=== PATIENT | female | born 1940 | race Caucasian/White ===

== ENCOUNTER 2021-06-24 11:37 | Inpatient (IN) | payer OTHER ==
[2021-06-24 13:24] LABS: Basophils % 0.5 % (0-1.3); Hematocrit 35.2 % (36.0-45.0); Lymphocytes % 14.7 % (15.3-44.8); MPV 7.7 fL (7.6-11.3); RBC Red Blood Cell Count 3.94 M/uL (3.86-4.86)
--- NOTE | 2021-06-24 14:23 | RAD REPORT ---
EXAM DESCRIPTION: US - Extrem Venous W Compress Dalton - 06/24/2021 2:12 pm CLINICAL HISTORY: Pain;Swelling Bilateral leg edema and swelling. COMPARISON: <Comparisons> TECHNIQUE: Real-time sonographic interrogation of the left and right lower extremity deep venous sys tems was performed. FINDINGS: Normal compressibility, flow augmentation, phasic flow and spontaneous flow is identified in both the left and right lower extremity deep venous systems. IMPRESSION: No sonographic evidence of left or right lower extremity deep venous thrombosis.
--- NOTE | 2021-06-24 15:12 | ER ---
Nurse's Notes [facility] Name: Kerrie Harrington Age: 81 yrs Sex: Female : 1940 Arrival Date: 06/24/2021 Time: 11:40 Bed 23 Private MD: Diagnosis: Cellulitis of right lower limb;Cellulitis of left lower limb Presentation: 06/24 11:49 Chief complaint: Patient states: RLE redness, swelling, pain, warmth for 2 weeks. + ll1 drainage with dressing intact. LLE healed quickly from a little blister that popped up. No fever at home. Coronavirus screen: Vaccine status: Patient reports receiving the 2nd dose of the covid vaccine. Client denies travel out of the [place] in the last 14 days. At this time, the client does not indicate any symptoms associated with coronavirus-19. Ebola Screen: Patient denies travel to an Ebola-affected area in the 21 days before illness onset. Initial Sepsis Screen: Does the patient meet any 2 criteria? HR > 90 bpm. No. Patient's initial sepsis screen is negative. Does the patient have a suspected source of infection? Yes: Skin breakdown/wound. Risk Assessment: Do you want to hurt yourself or someone else? Patient reports no desire to harm self or others. Onset of symptoms was June 10, 2021. 11:49 Method Of Arrival: Wheelchair ll1 11:49 Acuity: KEVAN 3 ll1 Triage Assessment: 14:40 General: Appears uncomfortable, Behavior is calm, cooperative, appropriate for age. oh Historical: - Allergies: 11:47 PENICILLINS; ll1 11:47 Aspirin; ll1 - PMHx: 11:47 Hypertension; GERD; pre cancerous skin spots to head; ll1 - PSHx: 11:47 cataract repair; ll1 - Immunization history:: Client reports receiving the 2nd dose of the Covid vaccine. - Social history:: Smoking status: Patient denies any tobacco usage or history of. Screenin:51 Abuse screen: Denies threats or abuse. Nutritional screening: No deficits noted. ll1 Tuberculosis screening: No symptoms or risk factors identified. 14:40 Fall Risk Gait-. oh Assessment: 14:37 Derm: Rash noted that is draining clear fluid, cellulitis to bilal legs, much worse on oh the right leg. pt states she tried to go to her pcp but doesn't have an appointment till June.flaking red clear draingae and significant swelling to right leg. 14:39 Pain: Complains of pain in right leg. oh Vital Signs: 11:49 BP 132 / 68; Pulse 95; Resp 17; Temp 97.4; Pulse Ox 98% ; Weight 90.26 kg; Height 5 ft. ll1 4 in. (162.56 cm); Pain 10/10; 14:47 BP 143 / 77; Pulse 90; Resp 19; Pulse Ox 100% ; oh 11:49 Body Mass Index 34.16 (90.26 kg, 162.56 cm) ll1 ED Course: 11:40 Patient arrived in ED. rg4 11:49 Arm band placed on. ll1 11:51 Triage completed. ll1 11:51 Patient has correct armband on for positive identification. Bed in low position. Call ll1 light in reach. Side rails up X 1. 12:00 Meek Soto NP is PHCP. pm1 12:00 Reid Krueger MD is Attending Physician. pm1 12:18 Ventura Talley, JULIENNE is Primary Nurse. oh 13:00 Inserted saline lock: 22 gauge in left wrist, using aseptic technique. Blood collected. oh 13:04 Blood Culture Adult (2) Sent. oh 13:05 CMP Sent. oh 13:05 Lactate Sent. oh 13:05 Procalcitonin Sent. oh 13:05 CBC with Diff Sent. oh 14:12 Extrem Venous W Compression Dalton US In Process Unspecified. EDMS 15:11 Edis Summers is Hospitalizing Provider. pm1 19:40 No provider procedures requiring assistance completed. Patient admitted, IV remains in df1 place. Administered Medications: 16:53 Drug: vancoMYCIN 1 grams Route: IVPB; Infused Over: 2 hrs; Site: left hand; oh Outcome: 15:12 Decision to Hospitalize by Provider. pm1 19:40 Admitted to Med/surg accompanied by tech. df1 19:40 Condition: stable 19:40 Instructed on the need for admit. 19:41 Patient left the ED. df1 Signatures: Dispatcher [employer] EDOH Meek Soto NP UNEMPLOYMENT INSPECTOR pm1 Falguni Thayer rg4 Ryan Vazquez RN RN 1 Lila Cardona df1 Mayank, Oneka, RN RN oh Corrections: (The following items were deleted from the chart) 13:42 13:04 CORONAVIRUS+[email or web address] drawn and sent. oh EDMS
--- NOTE | 2021-06-24 15:12 | EDPHYS ---
Physician Documentation [facility] Name: Kerrie Harrington Age: 81 yrs Sex: Female : 1940 Arrival Date: 06/24/2021 Time: 11:40 Bed 23 Private MD: ED Physician Reid Krueger HPI: 06/24 12:31 This 81 yrs old Female presents to ER via Wheelchair with complaints of Leg pm1 Swelling, Feet Swelling. 12:31 The patient presents with cellulitis of the right leg and left leg, the patient pm1 presents with a swollen area of the right leg. Description: erythematous, Blistering. Flaking and cracking of skin. Swelling of right lower extremity for the past 3 days. Onset: The symptoms/episode began/occurred 2 week(s) ago, and became worse 3 day(s) ago. Possible cause(s): unknown. Associated signs and symptoms: Pertinent positives: drainage, Blistering, Pertinent negatives: fever. Modifying factors: the symptoms are alleviated by nothing, the symptoms are aggravated by nothing. Severity of symptoms: in the emergency department the symptoms are actually worse. The patient has not recently seen a physician. Historical: - Allergies: 11:47 PENICILLINS; ll1 11:47 Aspirin; ll1 - PMHx: 11:47 Hypertension; GERD; pre cancerous skin spots to head; ll1 - PSHx: 11:47 cataract repair; ll1 - Immunization history:: Client reports receiving the 2nd dose of the Covid vaccine. - Social history:: Smoking status: Patient denies any tobacco usage or history of. ROS: 12:31 Constitutional: Negative for fever, chills, and weight loss, Cardiovascular: Negative pm1 for chest pain, palpitations, and edema, Respiratory: Negative for shortness of breath, cough, wheezing, and pleuritic chest pain, MS/Extremity: Negative for injury and deformity. 12:31 Skin: Positive for cellulitis, swelling, of the right leg and left leg. 12:31 All other systems are negative. Exam: 12:31 Constitutional: This is a well developed, well nourished patient who is awake, alert, pm1 and in no acute distress. Head/Face: Normocephalic, atraumatic. 12:31 Cardiovascular: Exam negative for acute changes, Rate: normal, Rhythm: regular, Pulses: no pulse deficits are appreciated. 12:31 Respiratory: Exam negative for acute changes, respiratory distress, shortness of breath. 12:31 Skin: Appearance: normal except for affected area, cellulitis, on the right padilla, anterior aspect of right ankle, dorsum of right foot, left padilla and anterior aspect of left ankle. 12:31 Neuro: Exam negative for acute changes, Orientation: is normal, Mentation: is normal, Motor: moves all fours. Vital Signs: 11:49 BP 132 / 68; Pulse 95; Resp 17; Temp 97.4; Pulse Ox 98% ; Weight 90.26 kg; Height 5 ft. ll1 4 in. (162.56 cm); Pain 10/10; 14:47 BP 143 / 77; Pulse 90; Resp 19; Pulse Ox 100% ; oh 11:49 Body Mass Index 34.16 (90.26 kg, 162.56 cm) ll1 MDM: 12:21 Patient medically screened. pm1 15:10 Data reviewed: vital signs. Data interpreted: Pulse oximetry: on room air is 100 %. pm1 Interpretation: normal. 15:10 Counseling: I had a detailed discussion with the patient and/or guardian regarding: the pm1 historical points, exam findings, and any diagnostic results supporting the discharge/admit diagnosis, lab results, the need for further work-up and treatment in the hospital. 15:10 Physician consultation: Chico Severino Sr was called at 15:05, was contacted at 15:05, pm1 regarding admission, patient's condition, and will see patient in ED. 06/24 12:29 Order name: Blood Culture Adult (2) pm1 06/24 12:29 Order name: CBC with Diff; Complete Time: 13:38 pm1 06/24 12:29 Order name: Procalcitonin; Complete Time: 16:37 pm1 06/24 12:29 Order name: Lactate; Complete Time: 14:55 pm1 06/24 12:29 Order name: CMP; Complete Time: 16:03 pm1 06/24 12:29 Order name: IV Saline Lock; Complete Time: 13:04 pm1 06/24 12:29 Order name: Extrem Venous W Compression Dalton US; Complete Time: 14:55 pm1 06/24 13:42 Order name: SARS-COV-2 RT PCR; Complete Time: 14:55 EDMS Administered Medications: 16:53 Drug: vancoMYCIN 1 grams Route: IVPB; Infused Over: 2 hrs; Site: left hand; oh Disposition: 06/25 07:03 Co-signature as Attending Physician, Reid Krueger MD I agree with the assessment and rn plan of care. Attestation: The patient's history, exam findings, diagnostics, and a summary of any interventions or procedures was reviewed in detail with Meek Soto IMPROVEMENT AUDITOR. Disposition Summary: 06/24/21 15:12 Hospitalization Ordered Hospitalization Status: Inpatient Admission pm1 Provider: Edis Summers pm1 Location: Telemetry/MedSurg (Inpatient) pm1 Condition: Stable pm1 Problem: new pm1 Symptoms: have improved pm1 Bed/Room Type: Standard 1 Room Assignment: 221(06/24/21 18:27) dw Diagnosis - Cellulitis of right lower limb pm1 - Cellulitis of left lower limb pm1 Forms: - Medication Reconciliation Form pm1 - SBAR form pm1 Signatures: Dispatcher [employer] EDNM Michelle Harrington, RN RN Reid Krueger MD MD rn Marinas, Patrick, NP IMPROVEMENT AUDITOR pm1 Ryan Vazquez RN RN 1 Ventura Talley RN RN oh Corrections: (The following items were deleted from the chart) 06/24 13:42 12:30 [email or web address] ordered. [facility] EDNM 18:27 15:12 pm1 dw
[2021-06-24] MEDS ORDERED: VANCOMYCIN 1 GM/VIAL ONE (15:33)
[2021-06-24 15:36] LABS: Albumin 3.7 g/dL (3.4-5.0); Bilirubin Total 0.5 mg/dL (0.2-1.0); Potassium 3.8 mmol/L (3.5-5.1); Protein, Total 8.2 g/dL (6.4-8.2)
[2021-06-24] MEDS ORDERED: VANCOMYCIN/NS 1 gm 1 GM/250 ML BAG IVPB ONE (16:00)
[2021-06-24] MEDS ORDERED: VANCOMYCIN 1.25 GM in NA CHLORIDE 0.9% 250 ML IVPB SCH (17:36)
[2021-06-24] MEDS ORDERED: ACETAMINOPHEN 500 MG TAB PO PRN (17:36)
[2021-06-24] MEDS ORDERED: ONDANSETRON 4 MG/2 ML VIAL IV PRN (17:36)
[2021-06-24] MEDS: NA CHLORIDE 0.9% 1,000 ML IV SCH (17:36)
[2021-06-24 18:13] VITALS: BMI 34.1
--- NOTE | 2021-06-24 18:31 | P.HP ---
Certification for Inpatient Patient admitted to: Inpatient With expected LOS: >2 Midnights Patient will require the following post-hospital care: Home Health Services (???) Practitioner: I am a practitioner with admitting privileges, knowledge of patient current condition, hospital course, and medical plan of care. Services: Services provided to patient in accordance with Admission requirements found in Title 42 Section 412.3 of the Code of Federal Regulations <Chico Severino - Last Filed: 06/24/21 18:26> Patient History Date of Service: 06/24/21 Primary Care Provider: Dr Houser Reason for admission: Cellulitis History of Present Illness: Kody Harrington - Extrem Venous W Compress Dalton - 06/24/2021 2:12 pm CLINICAL HISTORY: Pain;Swelling Bilateral leg edema and swelling. COMPARISON: <Comparisons> FINDINGS: Normal compressibility, flow augmentation, phasic flow and spontaneous flow is identified in both the left and right lower extremity deep venous systems. IMPRESSION: No sonographic evidence of left or right lower extremity deep venous thrombosis. Patient labs are unremarkable. Patient is slightly anemic with a hemoglobin of 11.9 and a hematocrit of 35.2. Procalcitonin is less than 0.05. Patient is a pleasant elderly white female of 81 years. She developed cell ulitis of her left and right legs approximately 2 to 3 weeks ago. About 10 days ago she developed blisters on her lower right leg. The redness and swelling was uncomfortable however she did not want to bother her primary care provider who did not have an available appointment at that time. On arrival to the ER she has fairly mild cellulitis of the left lower leg primarily around the ankle. She has much more extensive cellulitis of her lower right leg with blistering at the ankle and in mid-calf. She is in no acute distress at this time. Home medications list reviewed: Yes - Past Medical/Surgical History Has patient received pneumonia vaccine in the past: Yes Diabetic: No -: HTN -: High cholesterol -: Breast Cancer -: GERD -: Lumpectomy 2009 -: Total hip replacement 2008 -: Hysterectomy Psychosocial/ Personal History: Retired, lives at home alone - Family History Father -: Hypertension, Cancer Brother -: Hypertension, Cancer Sister -: Diabetes, Cancer - Social History Smoking Status: Never smoker Alcohol use: No CD- Drugs: No Caffeine use: Yes Place of Residence: Home <Chico Severino - Last Filed: 06/24/21 18:26> Date of Service: 06/24/21 <Rolando Georges - Last Filed: 06/26/21 03:40> Allergies aspirin Allergy (Verified 03/16/15 06:57) STOMACH IRRITATION Penicillins Allergy (Verified 03/16/15 06:57) Hives Home Medications: Lisinopril/Hydrochlorothiazide [Zestoretic 10-12.5 mg Tablet] 2 tab PO DAILY 03/12/13 Famotidine 40 mg PO BID 06/25/21 Lovastatin 10 mg PO BEDTIME 06/25/21 lisinopriL [Lisinopril] 10 mg PO BEDTIME 06/25/21 Review of Systems Unremarkable General: Other (Allergies to environment) Eyes: Unremarkable ENT: Unremarkable Respiratory: SOB with Excertion Cardiovascular: Unremarkable Gastrointestinal: Unremarkable Musculoskeletal: Unremarkable Integumentary: As per HPI Neurological: Unremarkable Lymphatics: Unremarkable <Chico Severino - Last Filed: 06/24/21 18:26> Physical Examination - Physical Exam General: Alert, In no apparent distress, Oriented x3 HEENT: Atraumatic, Normocephalic Neck: Supple, 2+ carotid pulse no bruit, JVD not distended Respiratory: Clear to auscultation bilaterally, Normal air movement Cardiovascular: No edema, Normal pulses, Regular rate/rhythm Capillary refill: <2 Seconds Gastrointestinal: Normal bowel sounds, Soft and benign, Non-distended Musculoskeletal: No clubbing, No swelling, No contractures Integumentary: Skin breakdown, Erythema, Other (blistering) Neurological: Normal speech, Normal strength at 5/5 x4 extr, Normal tone External genitalia: Deferred Rectal: Deferred - Studies Laboratory Data (last 24 hrs) 06/24/21 13:53: Sodium 142, Potassium 3.8, BUN 17, Creatinine 0.93, Glucose 112 H, Total Bilirubin 0.5, AST 18, ALT 19, Alkaline Phosphatase 95 06/24/21 12:53: WBC 6.90, Hgb 11.9 L, Hct 35.2 L, Plt Count 356 <Chico Severino - Last Filed: 06/24/21 18:26> - Studies Microbiology Data (last 24 hrs): 06/24/21 13:10 Blood - Blood Blood Culture Gram Stain - Final <Rolando Georges - Last Filed: 06/26/21 03:40> Assessment and Plan - Plan Assessment: Cellulitis Hypertension GERD Plan: Cellulitis: Monitor for worsening swelling or redness. IV antibiotics. Hypertension: Continue home medications GERD: Continue home medications DVT PPx: Lovenox 40 mg subcu CODE STATUS: Full code Discharge Plan: Home - Advance Directives Does patient have a Living Will: Yes Does patient have a Durable POA for Healthcare: Yes - Code Status/Comfort Care Code Status Assessed: Yes Code Status: Full Code Critical Care: No Time Spent Managing Pts Care (In Minutes): 70 <Chico Severino - Last Filed: 06/24/21 18:26> - Problems (Diagnosis) (1) Cellulitis of right lower extremity Current Visit: Yes Status: Acute (2) H/O malignant neoplasm of breast Current Visit: Yes Status: Acute (3) HTN (hypertension) Current Visit: Yes Status: Acute (4) Hyperlipidemia Current Visit: No Status: Active <Rolando Georges - Last Filed: 06/26/21 03:40> Date of Service: 06/24/21 Subjective Agree with the HPI as mentioned above Review of Systems 10-point ROS is otherwise unremarkable Physical Examination - Vital Signs Reviewed - Physical Exam General: Alert, In no apparent distress, Oriented x3 Respiratory: Clear to auscultation bilaterally, Normal air movement Cardiovascular: Regular rate/rhythm, Normal S1 S2, No murmurs Gastrointestinal: Normal bowel sounds, Soft and benign, Non-distended, No tenderness Musculoskeletal: No clubbing, No swelling, No tenderness Integumentary: Tenderness/swelling, Erythema, Warmth Neurological: Sensation intact, Cranial nerves 3-12 intact Assessment & Plan - Problems (Diagnosis) (1) Cellulitis of right lower extremity Current Visit: Yes Status: Acute (2) H/O malignant neoplasm of breast Current Visit: Yes Status: Acute (3) HTN (hypertension) Current Visit: Yes Status: Acute (4) Hyperlipidemia Current Visit: No Status: Active - Plan Continue with plan of care as mentioned below: 1. Continue with IV antibiotic 2. Continue with local wound care 3. Wound care consultation and Infectious Disease consultation 4. Hep-Lock IV 5. Monitor CBC 6. Strict blood sugar monitoring 7. Pain control 8. GI and DVT prophylaxis <Rolando Georges - Last Filed: 06/26/21 03:40>
[2021-06-24] MEDS ORDERED: NA CHLORIDE 0.9% 1,000 ML ONE (19:23)
[2021-06-24 19:48] VITALS: O2SAT 100
[2021-06-24] MEDS ORDERED: VANCOMYCIN 500 MG in NA CHLORIDE 0.9% 100 ML IVPB ONE (20:15)
[2021-06-24 22:00] LABS: Urine Appearance CLEAR (Clear); Urine Bilirubin NEGATIVE (Negative); Urine Blood NEGATIVE (Negative); Urine Color YELLOW (Yellow); Urine Glucose NEGATIVE (Negative); Urine Microscopic Reflex ORDER UMIC; Urine Protein NEGATIVE (Negative); Urine Specific Gravity 1.015 (1.005-1.030); Urine Urobilinogen 0.2 mg/dL (0.2-1.0); Urine pH 6.5 (5.0-7.0)
[2021-06-24 22:10] LABS: Urine Bacteria 20-50 /HPF (<20); Urine RBC NONE SEEN /HPF (NONE SEEN); Urine Urothelial Cells <5 /HPF (NONE SEEN)
[2021-06-25] MEDS: NA CHLORIDE 0.9% 1,000 ML IV SCH ×3 (03:36→23:36)
[2021-06-25 06:08] LABS: Absolute Lymphocytes (CBC) 1.1 K/uL (0.7-4.9); Basophils % 0.3 % (0-1.3); Hematocrit 32.7 % (36.0-45.0); Lymphocytes % 18.2 % (15.3-44.8); MPV 7.3 fL (7.6-11.3); RBC Red Blood Cell Count 3.65 M/uL (3.86-4.86)
[2021-06-25 06:24] LABS: Albumin 2.9 g/dL (3.4-5.0); Bilirubin Total 0.4 mg/dL (0.2-1.0); Potassium 3.9 mmol/L (3.5-5.1); Protein, Total 6.8 g/dL (6.4-8.2)
[2021-06-25] MEDS: ENOXAPARIN 40 MG/0.4 ML SQ SCH (09:00)
[2021-06-25] MEDS ORDERED: CEFEPIME 1 GM/VIAL IV SCH (09:00)
[2021-06-25] MEDS: CEFEPIME 1 GM in NA CHLORIDE 0.9% 100 ML IV SCH (11:00)
[2021-06-25] MEDS ORDERED: INFLUENZA VACCINE (for 6+ mo) 0.5 ML DOSE IMVAC ONE (17:00)
[2021-06-25] MEDS ORDERED: VANCOMYCIN 1.75 GM in NA CHLORIDE 0.9% 500 ML IVPB SCH (18:00)
[2021-06-25] MEDS ORDERED: lisinopriL 10 MG TAB PO SCH (21:00)
[2021-06-25] MEDS: FAMOTIDINE 20 MG TAB PO SCH (21:00)
[2021-06-25] MEDS ORDERED: ATORVASTATIN 10 MG TAB PO SCH (21:00)
--- NOTE | 2021-06-26 03:36 | P.PN ---
Subjective Date of Service: 06/25/21 Patient is clinically doing much better. Erythema is improving. Will Consult wound healing & Infectious Diseases as well. Review of Systems 10-point ROS is otherwise unremarkable Physical Examination - Vital Signs Temperature: 98.1 F Blood Pressure: 162/72 Pulse: 87 Respirations: 18 Pulse Ox (%): 94 - Physical Exam General: Alert, In no apparent distress, Oriented x3 Respiratory: Clear to auscultation bilaterally, Normal air movement Cardiovascular: Regular rate/rhythm, Normal S1 S2, No murmurs Gastrointestinal: Normal bowel sounds, Soft and benign, Non-distended, No tenderness Musculoskeletal: No clubbing, No swelling, No tenderness Integumentary: Tenderness/swelling, Erythema, Warmth Neurological: Sensation intact, Cranial nerves 3-12 intact - Studies Microbiology Data (last 24 hrs): 06/24/21 13:10 Blood - Blood Blood Culture Gram Stain - Final Medications List Reviewed: Yes Assessment & Plan - Problems (Diagnosis) (1) Cellulitis of right lower extremity Current Visit: Yes Status: Acute (2) H/O malignant neoplasm of breast Current Visit: Yes Status: Acute (3) HTN (hypertension) Current Visit: Yes Status: Acute (4) Hyperlipidemia Current Visit: No Status: Active - Plan 1. Continue with IV antibiotic 2. Continue with local wound care 3. Wound care consultation and Infectious Disease consultation 4. Hep-Lock IV 5. Monitor CBC 6. Strict blood sugar monitoring 7. Pain control 8. GI and DVT prophylaxis Discharge Plan: Home Plan to discharge in: Greater than 2 days - Advance Directives Does patient have a Living Will: Yes Does patient have a Durable POA for Healthcare: Yes - Code Status/Comfort Care Code Status: Full Code Critical Care: No Time Spent Managing PTS Care (In Minutes): 35
[2021-06-26 06:04] LABS: Absolute Lymphocytes (CBC) 1.3 K/uL (0.7-4.9); Basophils % 0.5 % (0-1.3); Hematocrit 29.9 % (36.0-45.0); Lymphocytes % 24.2 % (15.3-44.8); MPV 7.1 fL (7.6-11.3); RBC Red Blood Cell Count 3.31 M/uL (3.86-4.86)
[2021-06-26 06:20] LABS: Albumin 2.6 g/dL (3.4-5.0); Bilirubin Total 0.4 mg/dL (0.2-1.0); Potassium 3.6 mmol/L (3.5-5.1); Protein, Total 6.3 g/dL (6.4-8.2)
[2021-06-26] MEDS: hydroCHLOROthiazide 25 MG TAB PO SCH ×2 (08:22→08:23)
[2021-06-26] MEDS: ENOXAPARIN 40 MG/0.4 ML SQ SCH (08:23)
[2021-06-26] MEDS: FAMOTIDINE 20 MG TAB PO SCH (08:24)
[2021-06-26] MEDS ORDERED: lisinopriL 20 MG TAB PO SCH (09:00)
[2021-06-26] MEDS: CEFEPIME 1 GM in NA CHLORIDE 0.9% 100 ML IV SCH (13:12)
--- NOTE | 2021-06-26 13:24 | P.DS ---
Admission Date: 06/24/21 Discharge Date: 06/26/21 Primary Care Provider: Dr. Collazo Disposition: ROUTINE DISCHARGE Discharge Condition: GOOD Reason for Admission: Cellulitis Consultations: Wound Care Procedures: COVID: Negative Venous doppler: COMPARISON: <Comparisons> TECHNIQUE: Real-time sonographic interrogation of the left and right lower extremity deep venous systems was performed. FINDINGS: Normal compressibility, flow augmentation, phasic flow and spontaneous flow is identified in both the left and right lower extremity deep venous systems. IMPRESSION: No sonographic evidence of left or right lower extremity deep venous thrombosis. Medical problem List: Bilateral lower extremity cellulitis Hypertension GERD Hyperlipidemia Brief History of Present Illness: 81-year-old female presented with cellulitis of the legs bilateral. She had some erythema for several weeks to the lower extremity. About 10 days ago she developed blisters to the right lower extremity. She was not able to get with her PCP to further evaluate. In the ER she was evaluated. Patient found to have cellulitis to the lower extremities. Patient admitted for treatment. Hospital Course: Patient presented with bilateral lower extremity cellulitis. Patient was admitted for treatment. Patient had blister demarcation noted. Patient improved with IV antibiotic therapy. No debridement was required. Her condition has significantly improved. Patient was seen by wound care. Wound care recommended to apply A&E ointment daily to the skin for hydration. Recommend to continue Medihoney and place conforming gauze to her legs daily. Recommend follow-up at the wound care clinic in 1 week to monitor her progress and treatment. Patient will continue with Levaquin 500 mg daily for the next 5 days. Recommend follow-up with her PCP to further monitor and address. Patient with hypertension. At discharge patient will continue with her current medication including lisinopril hydrochlorothiazide 10/12.5 mg 2 pills daily and lisinopril 10 mg at bedtime. Recommend to maintain blood pressure less than 130/80. If blood pressure remains above 150/90, she may need to contact her PCP for further recommendation. Patient with hyperlipidemia. At discharge she will continue with lovastatin 10 mg daily. Patient with GERD. At discharge we will continue with Pepcid 40 mg daily. Patient had candidiasis rash to the breast and groin region. Patient may continue with nystatin powder twice daily to the irritated regions until resolution. Vital Signs/Physical Exam: Temp Pulse Resp BP Pulse Ox 99.5 F 81 16 173/75 H 98 06/26/21 11:45 06/26/21 11:45 06/26/21 11:45 06/26/21 11:45 06/26/21 11:45 General: Alert, In no apparent distress, Oriented x3, Cooperative HEENT: Atraumatic Neck: Supple Respiratory: Clear to auscultation bilaterally Cardiovascular: Normal pulses Gastrointestinal: Normal bowel sounds Musculoskeletal: Other (No significant erythema, swelling.) Integumentary: Other (Dry skin changes noted to the lower extremity. Line of demarcation from prior blister noted.) Neurological: Normal speech, Normal strength at 5/5 x4 extr, Normal tone Laboratory Data at Discharge: WBC 5.20 K/uL (4.3-10.9) D 06/26/21 05:36 Hgb 10.1 g/dL (12.0-15.0) L 06/26/21 05:36 Hct 29.9 % (36.0-45.0) L 06/26/21 05:36 Plt Count 269 K/uL (152-406) 06/26/21 05:36 Sodium 144 mmol/L (136-145) 06/26/21 05:36 Potassium 3.6 mmol/L (3.5-5.1) 06/26/21 05:36 BUN 14 mg/dL (7-18) 06/26/21 05:36 Creatinine 0.68 mg/dL (0.55-1.3) 06/26/21 05:36 Glucose 113 mg/dL (74-106) H 06/26/21 05:36 Total Bilirubin 0.4 mg/dL (0.2-1.0) 06/26/21 05:36 AST 16 U/L (15-37) 06/26/21 05:36 ALT 17 U/L (12-78) 06/26/21 05:36 Alkaline Phosphatase 73 U/L (45-117) 06/26/21 05:36 Home Medications: Lisinopril/Hydrochlorothiazide [Zestoretic 10-12.5 mg Tablet] 2 tab PO DAILY 03/12/13 Famotidine 40 mg PO BID 06/25/21 Lovastatin 10 mg PO BEDTIME 06/25/21 lisinopriL [Lisinopril] 10 mg PO BEDTIME 06/25/21 Medihoney [Medihoney Woundcare Gel*] 1 appl TOP DAILY #1 tube 06/26/21 Nystatin Powder [Mycostatin (Powder)*] 1 appl TOP BID #1 btl 06/26/21 New Medications: Medihoney [Medihoney Woundcare Gel*] 1 appl TOP DAILY #1 tube Nystatin Powder [Mycostatin (Powder)*] 1 appl TOP BID #1 btl Physician Discharge Instructions: Patient presented with bilateral lower extremity cellulitis. Patient was admitted for treatment. Patient had blister demarcation noted. Patient improved with IV antibiotic therapy. No debridement was required. Her conditio n has significantly improved. Patient was seen by wound care. Wound care recommended to apply A&E ointment daily to the skin for hydration. Recommend to continue Medihoney and place conforming gauze to her legs daily. Recommend follow-up at the wound care clinic in 1 week to monitor her progress and treatment. Patient will continue with Levaquin 500 mg daily for the next 5 days. Recommend follow-up with her PCP to further monitor and address. Patient with hypertension. At discharge patient will continue with her current medication including lisinopril hydrochlorothiazide 10/12.5 mg 2 pills daily and lisinopril 10 mg at bedtime. Recommend to maintain blood pressure less than 130/80. If blood pressure remains above 150/90, she may need to contact her PCP for further recommendation. Patient with hyperlipidemia. At discharge she will continue with lovastatin 10 mg daily. Patient with GERD. At discharge we will continue with Pepcid 40 mg daily. Patient had candidiasis rash to the breast and groin region. Patient may continue with nystatin powder twice daily to the irritated regions until resolution. Diet: AHA Activity: Ad anastasia Followup: Jocelyn Collazo DO [Primary Care Provider] - Time spent managing pt's care (in minutes): 55
[2021-06-26] MEDS ORDERED: MEDIHONEY 44 ML TOPICAL TUBE TOP SCH (13:45)
[2021-06-26] MEDS ORDERED: NYSTATIN PWDR 100000 UNIT/GM TOP SCH (14:00)
[2021-06-26 16:11] VITALS: BP 175/72; TEMP 98.1
--- NOTE | 2021-06-26 19:45 | CON ---
History Of Present Illness: The patient is an 81-year-old female coming in with right lower extremit y cellulitis and stasis dermatitis of both lower extremities. Patient also has an open cut wound to the right leg, which happened after a dressing was removed and her blister opened up. The patient de nies any fall or trauma to the wound site. Denies any headache, nausea, vomiting, chest pain, abdomi nal pain, constipation, or diarrhea. Past Medical History: Hypertension, hypercholesterolemia, breast cancer, GERD, lumpectomy, total hip replacement in 2009, hysterectomy. Social History: Nonsmoker, nondrinker. Family History: Noncontributory. Medications: Cefepime and vancomycin. Allergies: PENICILLIN AND ASPIRIN. PENICILLIN CAUSES RASH. Review of Systems: Ten-point review was performed. Physical Examination: General: This is an 81-year-old female, lying in bed, not in any acute cardiopulmonary distress. Vital Signs: Temperature 97, pulse 88, respirations 18, blood pressure 160/71. HEENT: Unremarkable. Neck: Supple. Lungs: Basal crackles. Heart: S1, S2. Regular. Abdomen: Soft, nontender. Bowel sounds present. Extremity: Erythematous changes with hyperkeratosis noted on both legs. Right leg with large vertic al laceration. Laboratory Data: Shows WBC 6.9, hemoglobin 11.9, platelets are 356. Chemistry shows sodium 142, pot assium 3.8, chloride 106, bicarb 29, BUN 17, creatinine 0.9, glucose is 112. Albumin is 3.7, up from 2.6. Micro data; blood cultures are negative. Urine is mixed edwardo. Assessment And Plan: Right lower extremity cellulitis in an 81-year-old female and stasis dermatitis of both lower extremities. Patient also has protein-calorie malnourishment and mild hyperglycemia. Cultures being negative. Patient is improved significantly and will be discharged today. Recommend to continue antibiotic for 10 more days. Continue current treatment. Keep legs elevated when possi ble. No other recommendation at this time. We will follow the patient as needed. Thank you, Dr. Georges and Dr. Blakely for consult. NF/MODL Voice ID: [id number] Report ID: [id number]
== END 2021-06-26 16:36 | disposition home or self-care (01) | DRG 603 ==
LOC: ER 11:37 → ERHOLD 16:45 → 2ND 19:37
PROVIDERS: ADMIT Hospitalist; ATTEND Hospitalist
DX: L03.116 Cellulitis of left lower limb (principal); E46 Unspecified protein-calorie malnutrition; L03.115 Cellulitis of right lower limb; I10 Essential (primary) hypertension; K21.9 Gastro-esophageal reflux disease without esophagitis; E78.5 Hyperlipidemia, unspecified; B37.2 Candidiasis of skin and nail; I87.2 Venous insufficiency (chronic) (peripheral); Z68.34 Body mass index [BMI] 34.0-34.9, adult; Z85.3 Personal history of malignant neoplasm of breast; Z96.649 Presence of unspecified artificial hip joint; Z88.0 Allergy status to penicillin; Z20.822 Contact with and (suspected) exposure to COVID-19
CPT/HCPCS: 36415; 80053; 81003; 81015; 83605; 84145; 85025; 87040; 87086; 87088; 87205; 93970; 96374; 99251; 99285; J0692; J1650; J3370; J7030; J7040; J7050; U0003

== ENCOUNTER 2022-03-24 17:56 | Emergency (ER) | payer OTHER ==
[2022-03-24 19:55] LABS: Absolute Lymphocytes (CBC) 1.5 K/uL (0.7-4.9); Hematocrit 37.8 % (36.0-45.0); Lymphocytes % 17.8 % (15.3-44.8); MCV 90.5 fL (80-100); MPV 7.5 fL (7.6-11.3); RBC Red Blood Cell Count 4.18 M/uL (3.86-4.86)
[2022-03-24 20:12] LABS: Albumin 3.6 g/dL (3.4-5.0); Bilirubin Direct 0.2 mg/dL (0-0.2); Bilirubin Total 0.6 mg/dL (0.2-1.0); Protein, Total 7.5 g/dL (6.4-8.2)
[2022-03-24 20:18] LABS: Protime INR 0.98
[2022-03-24] MEDS ORDERED: TETANUS & DIPHTHERIA TOX,ADULT 0.5 ML VIAL ONE (21:07)
--- NOTE | 2022-03-24 21:15 | RAD REPORT ---
EXAM DESCRIPTION: CT - Head C Spine Cap Amilcar Dia - 03/24/2022 8:45 pm CLINICAL HISTORY: Head and neck injury with chest and abdominal pain status post fall. Head and neck pain . TECHNIQUE: Computed axial tomography of the head and cervical spine was obtained Computed axial tomography of the chest, abdomen and pelvis was obtained. 100 cc Isovue-300 was given intravenously coronal and sagittal reconstruction was performed. All CT scans are performed using dose optimization technique as appropriate and may include automated exposure control or mA/KV adjustment according to patient size. COMPARISON: CT ABD 2011 FINDINGS: An intracranial bleed is not seen. The ventricles are normal in caliber. An extra-axial fl uid collection is not noted. Fluid within the sinuses is not seen A cervical fracture is not seen. No dislocation is seen. A mediastinal hematoma is not noted. A pleural effusion is not present. A lung contusion is not seen. Nondisplaced fracture left seventh lateral rib. Minimally displaced fracture eighth left lateral rib The liver, spleen, pancreas, adrenals, kidneys and bladder do not demonstrate a traumatic injury Small bilateral nonobstructing renal calculi. Right hip prosthesis. Marked osteoarthritis left hip The proximal and mid esophagus are mildly dilated Small thyroid nodules IMPRESSION: No acute intracranial abnormality is seen A cervical fracture is not visualized. If the patient continues have symptoms to suggest intracranial /spinal cord pathology then MRI would be recommended. Nondisplaced fracture left seventh rib. Minimally displaced fracture left eighth rib. No pneumothorax No acute traumatic injury involving the abdomen/pelvis Proximal and mid esophagus are mildly dilated. Followup is recommended
--- NOTE | 2022-03-24 21:28 | ER ---
Nurse's Notes [facility] Name: Krerie Harrington Age: 81 yrs Sex: Female : 1940 Arrival Date: 03/24/2022 Time: 18:02 Bed 3 Private MD: Diagnosis: Fall (on) (from) other stairs and steps-porch;Laceration without foreign body of left forearm-superfical;Multiple fractures of ribs, left side- \\T\\ Presentation: 03/24 18:00 Chief complaint: Patient states: "82 year old female with a fall today from a standing jd3 position. she reports that she was swatting at a mosquito and lost her balance. no blood thinners and no LOC. she is reporting left elbow pain with an abrasion and left lower back pain.". Coronavirus screen: At this time, the client does not indicate any symptoms associated with coronavirus-19. Ebola Screen: No symptoms or risks identified at this time. Initial Sepsis Screen: Does the patient meet any 2 criteria? No. Patient's initial sepsis screen is negative. Does the patient have a suspected source of infection? No. Patient's initial sepsis screen is negative. Risk Assessment: Do you want to hurt yourself or someone else? Patient reports no desire to harm self or others. Onset of symptoms was March 24, 2022. 18:00 Method Of Arrival: EMS: [facility] jd3 18:00 Acuity: KEVAN 3 jd3 Historical: - Allergies: 18:34 Aspirin; jd3 18:34 PENICILLINS; jd3 - PMHx: 18:34 GERD; Hypertension; pre cancerous skin spots to head; jd3 - PSHx: 18:34 cataract repair; jd3 - Immunization history:: Adult Immunizations up to date. - Social history:: Smoking status: Patient/guardian denies using tobacco, but has a distant history of tobacco abuse. - Family history:: not pertinent. - Hospitalizations: : No recent hospitalization is reported. Screenin:38 Abuse screen: Denies threats or abuse. Nutritional screening: No deficits noted. jd3 Tuberculosis screening: No symptoms or risk factors identified. Fall Risk Ambulatory Aid- None/Bed Rest/Nurse Assist (0 pts). Gait- Normal/Bed Rest/Wheelchair (0 pts) Mental Status- Oriented to own ability (0 pts). Total [place] Fall Scale indicates No Risk (0-24 pts). Assessment: 18:34 General: Appears in no apparent distress. comfortable, Behavior is calm, cooperative, jd3 appropriate for age. Pain: Complains of pain in low back area, left low back and left elbow Quality of pain is described as aching. Neuro: Ramirez Agitation-Sedation Scale (RASS): 0 - Alert and Calm Level of Consciousness is awake, alert, obeys commands, Oriented to person, place, time, situation. Cardiovascular: Capillary refill < 3 seconds Patient's skin is warm and dry. Respiratory: Airway is patent Respiratory effort is even, unlabored, Respiratory pattern is regular, symmetrical, Denies cough, shortness of breath. GI: No signs and/or symptoms were reported involving the gastrointestinal system. : No signs and/or symptoms were reported regarding the genitourinary system. EENT: No signs and/or symptoms were reported regarding the EENT system. Derm: Skin is intact, Skin is dry, Skin is normal, Skin temperature is warm abrasion noted to left elbow. Musculoskeletal: Circulation, motion, and sensation intact. Range of motion: intact in all extremities. 19:35 Reassessment: Patient appears in no apparent distress at this time. as6 20:56 Reassessment: Patient appears in no apparent distress at this time. Patient is alert, aa9 oriented x 3, equal unlabored respirations, skin warm/dry/pink. Vital Signs: 18:34 BP 150 / 59; Pulse 93; Resp 18 S; Temp 98.5(TE); Pulse Ox 100% on R/A; Weight 89.81 kg jd3 (R); Height 5 ft. 4 in. (162.56 cm) (R); Pain 7/10; 19:35 Pulse 86; Resp 18; Pulse Ox 98% on R/A; as6 20:56 BP 162 / 81; Pulse 100; Resp 18 S; Pulse Ox 98% on R/A; aa9 21:51 BP 158 / 67; Pulse 99; Resp 20; Pulse Ox 97% on R/A; Pain 7/10; kl 18:34 Body Mass Index 33.99 (89.81 kg, 162.56 cm) jd3 ED Course: 18:02 Patient arrived in ED. em1 18:02 Reid Krueger MD is Attending Physician. rn 18:05 Eduardo Mendez RN is Primary Nurse. jd3 18:33 Triage completed. jd3 18:34 Arm band placed on. jd3 18:38 Patient has correct armband on for positive identification. Bed in low position. Call jd3 light in reach. Side rails up X2. Adult w/ patient. Pulse ox on. NIBP on. 18:58 Inserted saline lock: 22 gauge in left antecubital area, using aseptic technique. jd3 19:07 Attending Physician role handed off by Reid Krueger MD [facility] 19:07 Charlie Day MD is Attending Physician. justice 20:47 Head C Spine Cap W Con In Process Unspecified. EDMS 21:44 Assist provider with laceration repair Set up tray. Performed by Charlie Day MD. IV kl discontinued, intact, bleeding controlled, No redness/swelling at site. Pressure dressing applied. 21:44 Wound care: to skin tear located on left elbow was cleaned with dressed with Neosporin, kl 4X4s, Kerlix. 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 Exp: kl 02/03/2023. Lot #: [id number]. } Route: IM; Site: right deltoid; 21:46 Follow up: Response: (VIS) Vaccine information sheet provided today. Questions and/or kl concerns addressed. VIS edition date: Apr 21, 2021.; No adverse reaction 21:30 Drug: Neosporin (bfmjenei-idbzearldp-nahjrybzu) Ointment 1 application Route: Topical; Site: affected area; 21:43 Drug: [place] (HYDROcodone-acetaminophen) (7.5 mg-325 mg) 1 tabs Route: PO; kl 21:46 Follow up: Response: No adverse reaction kl 21:43 Drug: Ondansetron 4 mg Route: PO; kl 21:45 Follow up: Response: No adverse reaction Medication: 18:38 VIS not applicable for this client. jd3 Outcome: 21:28 Discharge ordered by . justice 21:45 Discharged to home via wheelchair. kl 21:52 Condition: stable kl 21:52 Discharge instructions given to patient, family, Instructed on discharge instructions, follow up and referral plans. medication usage, Incentive spirometer Demonstrated understanding of instructions, follow-up care, medications, incentive spirometer 21:53 Patient left the ED. kl Signatures: Dispatcher [employer] EDMS Doreen Vazquez RN Charlie Quintero MD MD cha Nieto, Roman, MD MD rn Martinez, Eric emEduardo Llanos RN RN jd3 Cem Maguire RN RN as6 Niki Felix RN RN aa9
--- NOTE | 2022-03-24 21:29 | EDPHYS ---
Physician Documentation [facility] Name: Kerrie Harrington Age: 81 yrs Sex: Female : 1940 Arrival Date: 03/24/2022 Time: 18:02 Bed 3 Private MD: ED Physician Charlie Day HPI: 03/24 18:19 This 81 yrs old Female presents to ER via Unassigned with complaints of fall. rn 18:19 Details of fall: The patient fell from an upright position, while walking. Onset: The rn symptoms/episode began/occurred just prior to arrival. Associated injuries: The patient sustained injury to the head, injury to the low back, injury to the chest. Severity of symptoms: At their worst the symptoms were moderate, in the emergency department the symptoms are unchanged. The patient has not experienced similar symptoms in the past. The patient has not recently seen a physician. Pt reports fall, lost balance, fell backward, having pain to head/flanks/ribs/back. NO blood thinners. Remembers all events. No LOC.. Historical: - Allergies: 18:34 Aspirin; jd3 18:34 PENICILLINS; jd3 - PMHx: 18:34 GERD; Hypertension; pre cancerous skin spots to head; jd3 - PSHx: 18:34 cataract repair; jd3 - Immunization history:: Adult Immunizations up to date. - Social history:: Smoking status: Patient/guardian denies using tobacco, but has a distant history of tobacco abuse. - Family history:: not pertinent. - Hospitalizations: : No recent hospitalization is reported. ROS: 18:19 Constitutional: Negative for fever, chills, and weight loss, Eyes: Negative for injury, rn pain, redness, and discharge, Neck: Negative for injury, pain, and swelling, Cardiovascular: + chest/rib pain Respiratory: Negative for shortness of breath, cough, wheezing, and pleuritic chest pain, Abdomen/GI: Negative for abdominal pain, nausea, vomiting, diarrhea, and constipation, Back: + bilateral flank pain : Negative for injury, bleeding, discharge, and swelling, MS/Extremity: + skin tear to left elbow, + abrasion to left ankle Skin: + skin tear and abrasion Neuro: Negative for weakness, numbness, tingling, and seizure. Exam: 18:19 Constitutional: This is a well developed, well nourished patient who is awake, alert, rn and in no acute distress. Head/Face: Normocephalic, small contusion/hematoma occiput Eyes: Pupils equal round and reactive to light, extra-ocular motions intact. Lids and lashes normal. Conjunctiva and sclera are non-icteric and not injected. Cornea within normal limits. Periorbital areas with no swelling, redness, or edema. Neck: Trachea midline, no vertebral point tenderness. Chest/axilla: Normal chest wall appearance and motion. + tender bilateral lateral ribs without crepitus Cardiovascular: Regular rate and rhythm. No pulse deficits. Respiratory: No increased work of breathing, no retractions or nasal flaring. Abdomen/GI: Soft, non-tender Back: No spinal tenderness. No costovertebral tenderness. Full range of motion. Skin: Warm, dry. Moderate skin tear left elbow. + abrasion to left lateral malleolus. MS/ Extremity: Pulses equal, no cyanosis. Neurovascular intact. Full, normal range of motion. Equal circumference. Neuro: Awake and alert, GCS 15 Vital Signs: 18:34 BP 150 / 59; Pulse 93; Resp 18 S; Temp 98.5(TE); Pulse Ox 100% on R/A; Weight 89.81 kg jd3 (R); Height 5 ft. 4 in. (162.56 cm) (R); Pain 7/10; 19:35 Pulse 86; Resp 18; Pulse Ox 98% on R/A; as6 20:56 BP 162 / 81; Pulse 100; Resp 18 S; Pulse Ox 98% on R/A; aa9 21:51 BP 158 / 67; Pulse 99; Resp 20; Pulse Ox 97% on R/A; Pain 7/10; kl 18:34 Body Mass Index 33.99 (89.81 kg, 162.56 cm) jd3 MDM: 18:02 Patient medically screened. rn 19:06 Transition of care: After a detail discussion of the patient's case, care is rn transferred to Charlie Day MD. 21:28 Differential diagnosis: abrasion, closed head injury, contusion, fracture, laceration, justice multiple trauma, sprain, strain. Data reviewed: vital signs, nurses notes, lab test result(s), radiologic studies, CT scan. Data interpreted: manager monitoring: rate is 100 beats/min, rhythm is regular, Pulse oximetry: on room air is 98 %. Test interpretation: by ED physician or midlevel provider:. Counseling: I had a detailed discussion with the patient and/or guardian regarding: the historical points, exam findings, and any diagnostic results supporting the discharge/admit diagnosis, lab results, radiology results, the need for outpatient follow up, for definitive care, a family practitioner, a general surgeon. 03/24 18:18 Order name: CBC with Diff; Complete Time: 20:25 rn 03/24 18:18 Order name: Basic Metabolic Panel; Complete Time: 20:25 rn 03/24 18:18 Order name: Protime (+inr); Complete Time: 20:25 rn 03/24 18:18 Order name: Ptt, Activated; Complete Time: 20:25 rn 03/24 18:18 Order name: LFT's; Complete Time: 20:25 rn 03/24 18:18 Order name: IV Start; Complete Time: 19:19 rn 03/24 20:33 Order name: Head C Spine Cap W Con EDMS 03/24 21:27 Order name: INCENTIVE SPIROMETRY justice 03/24 21:08 Order name: Wound dressing; Complete Time: 21:20 justice Administered Medications: 21:09 Drug: Tetanus-Diphtheria Toxoid Adult 0.5 ml {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 Exp: kl 02/03/2023. Lot #: [id number]. } Route: IM; Site: right deltoid; 21:46 Follow up: Response: (VIS) Vaccine information sheet provided today. Questions and/or concerns addressed. VIS edition date: Apr 21, 2021.; No adverse reaction 21:30 Drug: Neosporin (zgdmzfes-infbdenblo-drfsesvgp) Ointment 1 application Route: Topical; kl Site: affected area; 21:43 Drug: [place] (HYDROcodone-acetaminophen) (7.5 mg-325 mg) 1 tabs Route: PO; kl 21:46 Follow up: Response: No adverse reaction kl 21:43 Drug: Ondansetron 4 mg Route: PO; kl 21:45 Follow up: Response: No adverse reaction kl Disposition Summary: 03/24/22 21:28 Discharge Ordered Location: Home justice Problem: new justice Symptoms: have improved justice Condition: Stable justice Diagnosis - Fall (on) (from) other stairs and steps - porch justice - Laceration without foreign body of left forearm - superfical justice - Multiple fractures of ribs, left side - \T\ justice Followup: justice - With: Private Physician - When: 2 - 3 days - Reason: Recheck today's complaints, Continuance of care, Re-evaluation by your physician Discharge Instructions: - Discharge Summary Sheet justice - Acute Back Pain, Adult justice - Fall Prevention in the Home, Adult justice - Skin Tear justice - Rib Fracture justice - How to Use an Incentive Spirometer justice - Skin Tear, Nnia-rl-Zskn justice - Rib Fracture, Ncxr-ew-Mliq justice Forms: - Medication Reconciliation Form justice - Thank You Letter justice - Antibiotic Education justice - Prescription Opioid Use [facility] Prescriptions: - Tylenol-Codeine #3 300 mg-30 mg Oral - take 1 tablet by ORAL route every 6 hours; 20 tablet; Refills: 0, Product justice Selection Permitted Signatures: Dispatcher [employer] EDMS Doreen Vazquez RN RN kl Anderson, Corey, MD MD cha Nieto, Roman, MD MD rn Davies, Jonathon, RN RN jd3 Corrections: (The following items were deleted from the chart) 20:31 18:24 Chest Abdomen Pelvis W Con+CT.RAD.BRZ ordered. EDMS EDMS 20:33 18:22 Head Brain Wo Cont+CT.RAD.BRZ ordered. EDMS EDMS
[2022-03-24] MEDS ORDERED: HYDROCODONE/APAP 7.5/325 MG TAB ONE (21:46)
[2022-03-24] MEDS ORDERED: ONDANSETRON 4 MG (ODT) TAB ONE (21:46)
[2022-03-24 22:22] VITALS: TEMP 98.5
[2022-03-24 22:27] VITALS: BP 158/67; O2SAT 97
== END 2022-03-24 21:53 | disposition home or self-care (01) ==
LOC: ER 17:56
DX: S22.42XA Multiple fractures of ribs, left side, initial encounter for closed fracture (principal); S51.812A Laceration without foreign body of left forearm, initial encounter; W10.8XXA Fall (on) (from) other stairs and steps, initial encounter; Z23 Encounter for immunization; I10 Essential (primary) hypertension; Z88.0 Allergy status to penicillin; Z88.6 Allergy status to analgesic agent
CPT/HCPCS: 85025; 80048; 36415; 85610; 80076; 85730; 70450; 72125; 71260; 74177; 90714; Q9967; Q0162; 90471; 99284

== ENCOUNTER 2022-04-06 16:15 | Inpatient (IN) | payer OTHER ==
--- OUTSIDE RECORDS SUMMARY | 2022-04-06 16:32 | XMS REPORT | Continuity of Care Document ---
:1940 Author Organization [facility] t Address [address] [place] [address] Care Team Providers Name Role Phone Jocelyn Collazo Attending Clinician Unavailable Problems This patient has no known problems. Allergies, Adverse Reactions, Alerts Allergy Allergy Status Severity Reaction(s) Onset Inactive Treating Comm ents Source Name Type Date Date Clinician Aspirin Adverse Active Info Not Common Reaction Available [facility] Amoxicil Adverse Active Info Not Commo n kerrie Reaction Available [facility] Medications Ordered Filled Start Stop Current Ordering Indication Dosage Frequency Signature Comments Components Source Medication Medication Date Date Medication? Clinician (SIG) Name Name Lisinopril Lisinopril 2020-0 Yes Na Collazo 1 tablet Common 2-12 [facility] 00:00: - [facility] 00 [facility] Triamcinolo Triamcinolo 2020-0 Yes Na Collazo 1 Common ne ne 2-12 applicatio Spirit Acetonide Acetonide 00:00: n to - C HI 00 affected [facility] Albuterol Albuterol 2020-0 Yes Na Collazo 3 ml as Common Sulfate Sulfate 2-12 needed [facility] 00:00: - [facility] 00 [facility] Nystatin Nystatin 2020-0 2020- No Na Collazo 1 C ommon 2-12 04-12 applicatio Spirit 00:00: 00:00 n to - [facility] 00 :00 affected [facility] Famotidine Famotidine 2020-0 Yes Na Collazo 1 tablet Common 1-02 as needed Spirit 00:00: - [facility] Zantac Zantac Yes Na Collazo TAKE 1 Common TABLET BY Spirit MOUTH - [facility] TWICE A [facility] Multivitami Multivitami Yes Na Collazo not Common n n defined [facility] Lovastatin Lovastatin Yes Na Collazo TAKE 1 Common TABLET BY Spirit MOUTH - [facility] EVERY DAY [facility] Lisinopril- Lisinopril- Yes Na Collazo TAKE 2 Common Hydrochloro Hydrochloro TABLETS BY Spirit thiazide thiazide MOUTH - [facility] EVERY DAY [facility] Lisinopril- Lisinopril- Yes Na Collazo 2 tablet Common Hydrochloro Hydrochloro S pirit thiazide thiazide - [facility] Hydrochloro Hydrochloro Yes Na Collazo 1 tablet Common thiazide thiazide in the Spiri t morning - [facility] Immunizations Ordered Immunization Filled Immunization Date Status Commen ts Source Name Name Kodak Candelario 2019-06-24 Completed Common [facility] 00:00:00 - [facility] TDAP > 7 TDAP > 7 2018-05-21 Completed Common [facility] Years-Adacel Years-Adacel 00:00:00 - [facility] Prevnar 13 Prevnar 13 2018-05-21 Completed Common [facility] -Pneumonia Vaccine -Pneumonia Vaccine 00:00:00 - [facility] Procedures This patient has no known procedures. Encounters Start End Encounter Admission Attending Care Care Encounter Source Date/Time Date/Time Type Type Clinicians Facility Department ID 2022-03-28 Outpatient Jocelyn Collazo STLMLC STLMLC [id number] 2 Common 09:38:00 [facility] 2022-03-26 Outpatient Jocelyn Collazo STLMLC STLMLC [id number] 2 Common 11:16:00 [facility] 2022-03-05 Outpatient Zay, Na STLMLC STLMLC [id number] 2 Common 08:48:00 [facility] 2022-02-27 Outpatient Jocelyn Collazo STLMLC STLMLC [id number] 2 Common 09:40:01 [facility] 2021-12-19 Outpatient Jocelyn Collazo STLMLC STLMLC [id number] 2 Common 09:58:01 [facility] 2021-12-18 Outpatient Collazo, Na STLMLC STLMLC [id number] 2 Common 11:06:01 [facility] 2021-12-15 Outpatient Collazo, Na STLMLC STLMLC [id number] 2 Common 13:37:00 [facility] 2021-10-11 Outpatient Collazo, Na STLMLC STLMLC [id number] 2 Common 12:48:42 [id number] [facility] 2021-10-11 Outpatient Collazo, Na STLMLC STLMLC [id number] 2 Common 12:47:40 [id number] [facility] 2021-10-11 Outpatient Collazo, Na STLMLC STLMLC [id number] 2 Common 11:48:55 [id number] [facility] 2021-10-11 Outpatient Collazo, Na STLMLC STLMLC [id number] 2 Common 11:17:22 [id number] [facility] 2021-10-11 Outpatient Collazo, Na STLMLC STLMLC [id number] 2 Common 11:13:20 [id number] [facility] 2021-10-11 Outpatient Collazo, Na STLMLC STLMLC [id number] 2 Common 11:07:19 [id number] [facility] 2021-10-11 Outpatient Collazo, Na STLMLC STLMLC [id number] 2 Common 11:06:28 [id number] [facility] 2022-03-26 2022-03-26 ambulatory STLMLC STLMLC [id number] Common 00:00:00 00:00:00 [facility] 2022-03-13 2022-03-13 ambulatory STLMLC STLMLC [id number] Common 00:00:00 00:00:00 [facility] 2022-02-27 2022-02-27 ambulatory STLMLC STLMLC [id number] Common 00:00:00 00:00:00 [facility] 2022-02-23 2022-02-23 ambulatory STLMLC STLMLC [id number] Common 00:00:00 00:00:00 [facility] 2021-12-19 2021-12-19 ambulatory STLMLC STLMLC [id number] Common 00:00:00 00:00:00 [facility] 2021-09-12 2021-09-12 ambulatory STLMLC STLMLC [id number] Common 00:00:00 00:00:00 [facility] 2021-08-14 2021-08-14 ambulatory STLMLC STLMLC [id number] Common 00:00:00 00:00:00 [facility] 2021-07-20 2021-07-20 ambulatory STLMLC STLMLC [id number] Common 00:00:00 00:00:00 [facility] 2021-07-13 2021-07-13 Outpatient STLMLC STLMLC [id number] Common 00:00:00 00:00:00 [facility] 2021-07-04 2021-07-04 Outpatient STLMLC STLMLC [id number] Common 00:00:00 00:00:00 [facility] 2020-12-20 2020-12-20 Outpatient STLMLC STLMLC [id number] Common 00:00:00 00:00:00 [facility] 2020-12-19 2020-12-19 Outpatient STLMLC STLMLC [id number] Common 00:00:00 00:00:00 [facility] 2020-09-26 2020-09-26 Outpatient STLMLC STLMLC [id number] Common 00:00:00 00:00:00 [facility] 2020-06-13 2020-06-13 Outpatient STLMLC STLMLC [id number] Common 00:00:00 00:00:00 [facility] 2020-03-10 2020-03-10 [id number] Common 15:20:00 15:20:00 [facility] [employer] [address] [facility] 2019-11-26 2019-11-26 [facility] [id number] Common 13:40:00 13:40:00 [facility] [employer] [address] [facility] 2019-10-30 2019-10-30 [id number] Common 11:11:00 11:11:00 [place] [address] [facility] 2019-10-28 2019-10-28 [facility] [id number] Common 11:00:00 11:00:00 [place] [address] [facility] 2019-09-17 2019-09-17 [facility] [id number] Common 13:52:00 13:52:00 [place] [address] [facility] 2019-06-24 2019-06-24 [facility] [id number] Common 11:20:00 11:20:00 [place] [address] [facility] 2019-02-19 2019-02-19 [facility] [id number] Common 13:00:00 13:00:00 [place] [address] [facility] 2018-11-18 2018-11-18 [facility] [id number] Common 14:15:00 14:15:00 [place] [address] [facility] 2018-10-10 2018-10-10 [facility] [id number] Common 11:33:00 11:33:00 [place] [address] [facility] 2018-08-20 2018-08-20 [facility] [id number] Common 14:00:00 14:00:00 [place] [address] [facility] 2018-05-21 2018-05-21 [facility] [id number] Common 14:15:00 14:15:00 [place] [address] [facility] 2018-02-18 2018-02-18 [facility] [id number] Common 15:00:00 15:00:00 [place] [address] [facility] Results This patient has no known results.
[2022-04-06 17:53] LABS: Absolute Lymphocytes (CBC) 0.8 K/uL (0.7-4.9); Hematocrit 31.3 % (36.0-45.0); Lymphocytes % 9.3 % (15.3-44.8); MCV 90.3 fL (80-100); RBC Red Blood Cell Count 3.46 M/uL (3.86-4.86)
--- NOTE | 2022-04-06 17:56 | ER ---
Nurse's Notes [facility] Name: Kerrie Harrington Age: 82 yrs Sex: Female : 1940 Arrival Date: 04/06/2022 Time: 16:18 Bed 6 Private MD: Diagnosis: Cellulitis of left lower limb;Cellulitis of right lower limb;Lymphedema, not elsewhere classified Presentation: 04/06 16:28 Chief complaint: Patient states: RAFAT lower leg swelling/weeping. Coronavirus screen: At ld1 this time, the client does not indicate any symptoms associated with coronavirus-19. Ebola Screen: No symptoms or risks identified at this time. Initial Sepsis Screen: Does the patient meet any 2 criteria? No. Patient's initial sepsis screen is negative. Does the patient have a suspected source of infection? No. Patient's initial sepsis screen is negative. Risk Assessment: Do you want to hurt yourself or someone else? Patient reports no desire to harm self or others. Onset of symptoms was April 06, 2022 at 16:29. 16:28 Method Of Arrival: Wheelchair ld1 16:28 Acuity: KEVAN 3 ld1 Triage Assessment: 16:28 General: Appears in no apparent distress. comfortable, Behavior is calm, cooperative, ld1 appropriate for age. Pain: Denies pain. EENT: No signs and/or symptoms were reported regarding the EENT system. Neuro: Level of Consciousness is awake, alert, obeys commands, Oriented to person, place, time, situation. Cardiovascular: Capillary refill < 3 seconds Patient's skin is warm and dry. Cardiovascular:. Cardiovascular:. Cardiovascular:. Respiratory: Airway is patent Respiratory effort is even, unlabored. Respiratory:. Respiratory: GI: Abdomen is round non-distended. GI: : No signs and/or symptoms were reported regarding the genitourinary system. :. Derm: No signs and/or symptoms reported regarding the dermatologic system. Derm:. Derm: No signs and/or symptoms reported regarding the dermatologic system. swelling to lower legs. Historical: - Allergies: 16:28 Aspirin; ld1 16:28 PENICILLINS; ld1 - PMHx: 16:28 GERD; Hypertension; pre cancerous skin spots to head; ld1 - PSHx: 16:28 cataract repair; ld1 - Immunization history:: Adult Immunizations up to date, Client reports receiving the 2nd dose of the Covid vaccine. - Social history:: Smoking status: Patient denies any tobacco usage or history of. Patient/guardian denies using alcohol. - Family history:: not pertinent. - Hospitalizations: : No recent hospitalization is reported. Screenin:43 Abuse screen: Denies threats or abuse. Denies injuries from another. Nutritional ph screening: No deficits noted. Tuberculosis screening: No symptoms or risk factors identified. Fall Risk None identified. Assessment: 17:43 General: Appears in no apparent distress. comfortable, well groomed, Behavior is calm, ph cooperative, appropriate for age, Denies fever, feeling ill. Pain: Complains of pain in buttocks. Neuro: Level of Consciousness is awake, alert, obeys commands, Oriented to person, place, time, situation. Cardiovascular: Denies chest pain, shortness of breath, Capillary refill < 3 seconds in bilateral fingers Patient's skin is warm and dry. Edema is 3+ to left midcalf, left ankle, left foot, right midcalf, right ankle and right foot. Respiratory: Airway is patent Respiratory effort is even, unlabored. GI: No signs and/or symptoms were reported involving the gastrointestinal system. Derm: Skin is fragile, is thin, Skin is pink, warm \T\ dry. Wound noted left lower leg and right lower leg Wound is red and weeping, warm to touch. Musculoskeletal: Circulation, motion, and sensation intact. Range of motion: intact in all extremities. 17:45 Reassessment: US at bedside. ph 18:22 Reassessment: Patient appears in no apparent distress at this time. No changes from tw2 previously documented assessment. Patient and/or family updated on plan of care and expected duration. Pain level reassessed. Patient is alert, oriented x 3, equal unlabored respirations, skin warm/dry/pink. 19:10 Reassessment: Patient aware of waiting for room assignment. General: Appears in no lp1 apparent distress. Neuro: Level of Consciousness is awake, alert, obeys commands. Respiratory: Respiratory effort is even. Derm: Wound noted Other: bilateral lower legs noted to be red, edematous, weeping drainage noted. 20:00 Reassessment: Patient appears in no apparent distress at this time. Patient aware of lp1 waiting for room assignment; family at bedside. 21:15 Reassessment: Dressed patient's bilateral lower legs with 4x4's, and kerlix; small lp1 amount of weeping noted bilaterally. Vital Signs: 16:28 BP 123 / 65; Pulse 109; Resp 18; Temp 98.5(O); Pulse Ox 100% on R/A; Weight 90.26 kg; ld1 Height 5 ft. 4 in. (162.56 cm); Pain 0/10; 17:45 BP 138 / 52; Pulse 105; Resp 18; Pulse Ox 98% on R/A; ph 18:22 BP 150 / 72; Pulse 112; Resp 19; Pulse Ox 98% ; tw2 19:15 BP 148 / 65; Pulse 108; Resp 15; Pulse Ox 98% on R/A; lp1 20:00 BP 158 / 80; Pulse 114; Resp 22; Pulse Ox 98% on R/A; lp1 21:00 BP 142 / 54; Pulse 110; Resp 20; Pulse Ox 98% on R/A; lp1 21:52 Temp 98.3(O); lp1 22:07 BP 127 / 52; Pulse 115; Resp 22; Pulse Ox 99% on R/A; lp1 16:28 Body Mass Index 34.16 (90.26 kg, 162.56 cm) ld1 ED Course: 16:18 Patient arrived in ED. mr 16:28 Arm band placed on right wrist. EKG completed in triage. Results shown to MD. ld1 16:29 Triage completed. ld1 16:40 Reid Krueger MD is Attending Physician. rn 16:42 Nettie Negrete RN is Primary Nurse. ph 17:35 Initial lab(s) drawn, by me, sent to lab. Inserted saline lock: 22 gauge in left ph antecubital area, using aseptic technique. Blood collected. 17:43 Patient has correct armband on for positive identification. Placed in gown. Bed in low ph position. Call light in reach. Side rails up X2. Client placed on continuous cardiac and pulse oximetry monitoring. NIBP monitoring applied. Door closed. Noise minimized. Warm blanket given. Pillow given. 17:55 Erick Kumar MD is Hospitalizing Provider. rn 18:15 Extrem Venous W Compression Rafat US In Process Unspecified. EDMS 19:09 Primary Nurse role handed off by Nettie Negrete, RN as6 19:09 Cem Maguire, RN is Primary Nurse. as6 20:14 Notified Nurse Practitioner and/or Physician Welding Robot Operator of a critical lab result(s), bb troponin of 76.0 [place] Severino RN QUALITY notified. 21:47 No provider procedures requiring assistance completed. Patient admitted, IV remains in lp1 place. Administered Medications: 18:59 Drug: vancoMYCIN 1 grams Route: IVPB; Infused Over: 2 hrs; Site: left antecubital; ph 21:30 Follow up: IV Status: Completed infusion; IV Intake: 250ml lp1 Medication: 17:43 VIS not applicable for this client. ph Intake: 21:30 IV: 250ml; Total: 250ml. lp1 Outcome: 17:56 Decision to Hospitalize by Provider. rn 21:52 Condition: stable lp1 21:52 Instructed on the need for admit. 21:57 Admitted to Med/surg room 209, with chart, Report called to JULIENNE Phelps lp1 22:08 Patient left the ED. lp1 Signatures: Dispatcher [facility] Krista Arana Brenda, RN RN bb Reid Krueger MD MD rn Pena, Laura, RN RN lp1 Nettie Negrete, Merced Edwards RN, ph, RN RN 2 Saumya Herron, JULIENNE RN ld1 Cem Maguire, RN RN as6
--- NOTE | 2022-04-06 17:56 | EDPHYS ---
Physician Documentation [facility] Name: Kerrie Harrington Age: 82 yrs Sex: Female : 1940 Arrival Date: 04/06/2022 Time: 16:18 Bed 6 Private MD: ED Physician Reid Krueger HPI: 04/06 17:36 This 82 yrs old Female presents to ER via Wheelchair with complaints of Leg Swelling, rn weeping. 17:36 The patient presents with cellulitis of the right leg and left leg, the patient rn presents with a swollen area of the right leg and left leg. Onset: The symptoms/episode began/occurred 1 week(s) ago. Possible cause(s): unknown. Associated signs and symptoms: Pertinent positives: discharge, drainage, erythema, swelling, Pertinent negatives: fever. Modifying factors: the symptoms are alleviated by nothing, the symptoms are aggravated by touching. Severity of symptoms: At their worst the symptoms were moderate, in the emergency department the symptoms are unchanged. The patient has experienced a previous episode. The patient has not recently seen a physician. Patient and family report recent leg swelling, along with erythema and weeping drainage. NO fever. Denies chronic lymphedema. NO trauma. . Historical: - Allergies: 16:28 Aspirin; ld1 16:28 PENICILLINS; ld1 - PMHx: 16:28 GERD; Hypertension; pre cancerous skin spots to head; ld1 - PSHx: 16:28 cataract repair; ld1 - Immunization history:: Adult Immunizations up to date, Client reports receiving the 2nd dose of the Covid vaccine. - Social history:: Smoking status: Patient denies any tobacco usage or history of. Patient/guardian denies using alcohol. - Family history:: not pertinent. - Hospitalizations: : No recent hospitalization is reported. ROS: 17:36 Constitutional: Negative for fever, chills, and weight loss, Eyes: Negative for injury, rn pain, redness, and discharge, Cardiovascular: Negative for chest pain, palpitations, and edema, Respiratory: Negative for shortness of breath, cough, wheezing, and pleuritic chest pain, Abdomen/GI: Negative for abdominal pain, nausea, vomiting, diarrhea, and constipation, Back: Negative for injury and pain, MS/Extremity: + redness and swelling Skin: Negative for injury, rash, and discoloration, Neuro: Negative for headache, weakness, numbness, tingling, and seizure. Exam: 17:24 ECG was reviewed by the Attending Physician. rn 17:36 Constitutional: This is a well developed, well nourished patient who is awake, alert, rn and in no acute distress. Head/Face: Normocephalic, atraumatic. Cardiovascular: Tachycardic, regular. No pulse deficits. Respiratory: No increased work of breathing, no retractions or nasal flaring. Abdomen/GI: Soft, non-tender Skin: + redness and swelling to bilateral legs, with weeping skin, no fluctuance, 2+ pitting edema MS/ Extremity: Pulses equal, no cyanosis. Neurovascular intact. Neuro: Awake and alert, GCS 15 Vital Signs: 16:28 BP 123 / 65; Pulse 109; Resp 18; Temp 98.5(O); Pulse Ox 100% on R/A; Weight 90.26 kg; ld1 Height 5 ft. 4 in. (162.56 cm); Pain 0/10; 17:45 BP 138 / 52; Pulse 105; Resp 18; Pulse Ox 98% on R/A; ph 18:22 BP 150 / 72; Pulse 112; Resp 19; Pulse Ox 98% ; tw2 19:15 BP 148 / 65; Pulse 108; Resp 15; Pulse Ox 98% on R/A; lp1 20:00 BP 158 / 80; Pulse 114; Resp 22; Pulse Ox 98% on R/A; lp1 21:00 BP 142 / 54; Pulse 110; Resp 20; Pulse Ox 98% on R/A; lp1 21:52 Temp 98.3(O); lp1 22:07 BP 127 / 52; Pulse 115; Resp 22; Pulse Ox 99% on R/A; lp1 16:28 Body Mass Index 34.16 (90.26 kg, 162.56 cm) ld1 MDM: 16:40 Patient medically screened. rn 17:55 Differential diagnosis: cellulitis. Differential diagnosis: lymphedema. Data reviewed: rn vital signs, nurses notes. Counseling: I had a detailed discussion with the patient and/or guardian regarding: the historical points, exam findings, and any diagnostic results supporting the discharge/admit diagnosis, lab results, the need for further work-up and treatment in the hospital. Response to treatment: There is no appreciated change of the patient's symptoms at this time, and as a result, I will admit patient. Admission orders: after a detailed discussion of the patient's condition and case, the admit orders are written by me. 04/06 16:50 Order name: CBC with Diff; Complete Time: 17:55 rn 04/06 16:50 Order name: Basic Metabolic Panel; Complete Time: 18:17 rn 04/06 16:50 Order name: Protime (+inr); Complete Time: 18:31 rn 04/06 16:50 Order name: Ptt, Activated; Complete Time: 18:31 rn 04/06 16:50 Order name: Blood Culture Adult (2) rn 04/06 16:50 Order name: Lactate; Complete Time: 18:10 rn 04/06 16:50 Order name: Extrem Venous W Compression [place] US; Complete Time: 18:31 rn 04/06 16:50 Order name: IV Start; Complete Time: 17:46 rn 04/06 16:50 Order name: Cardiac monitoring; Complete Time: 17:46 rn 04/06 18:47 Order name: SARS RAPID aa5 04/06 19:06 Order name: BNP la1 04/06 19:06 Order name: LFT's la1 04/06 19:06 Order name: Troponin High Sensitivity la1 04/06 16:50 Order name: EKG - Nurse/Tech; Complete Time: 17:46 rn 04/06 16:50 Order name: IV Saline Lock - Large Bore; Complete Time: 17:46 rn 04/06 16:50 Order name: Labs collected and sent; Complete Time: 17:46 rn 04/06 16:50 Order name: O2 Per Protocol; Complete Time: 16:58 04/06 16:50 Order name: O2 Sat Monitoring; Complete Time: 16:58 rn EC:24 Rate is 103 beats/min. Rhythm is regular. QRS Maria Stein is Normal. MI interval is normal. rn QRS interval is normal. QT interval is normal. No Q waves. T waves are Normal. No ST changes noted. Clinical impression: Sinus tachycardia. Interpreted by me. Reviewed by me. Administered Medications: 18:59 Drug: vancoMYCIN 1 grams Route: IVPB; Infused Over: 2 hrs; Site: left antecubital; ph 21:30 Follow up: IV Status: Completed infusion; IV Intake: 250ml lp1 Disposition Summary: 04/06/22 17:56 Hospitalization Ordered Hospitalization Status: Inpatient Admission rn Provider: Erick Kumar rn Location: Telemetry/[facility]Sur (Inpatient) rn Condition: Stable rn Problem: new rn Symptoms: are unchanged rn Bed/Room Type: Standard rn Room Assignment: 209(04/06/22 21:50) cg Diagnosis - Cellulitis of left lower limb rn - Cellulitis of right lower limb rn - Lymphedema, not elsewhere classified rn Forms: - Medication Reconciliation Form rn - SBAR form rn Signatures: Dispatcher [employer] EDReid Corral MD MD rn Mere, [place], SHOE DRESSER-C SHOE DRESSER-Cla1 Nettie Negrete RN RN Lay Thayer RN RN Saumya Herron, RN RN ld1 Chelsi Paula RN lp1 Corrections: (The following items were deleted from the chart) 21:44 17:56 rn cg 21:50 21:44 216 cg cg
[2022-04-06 18:10] LABS: Potassium 4.2 mmol/L (3.5-5.1)
[2022-04-06 18:20] LABS: Protime INR 1.08
--- NOTE | 2022-04-06 18:30 | RAD REPORT ---
EXAM DESCRIPTION: US - Extrem Venous W Compress Dalton - 04/06/2022 6:14 pm CLINICAL HISTORY: Pain Bilateral leg edema and swelling. COMPARISON: <Comparisons> TECHNIQUE: Real-time sonographic interrogation of the left and right lower extremity deep venous sys tems was performed. FINDINGS: Normal compressibility, flow augmentation, phasic flow and spontaneous flow is identified in both the left and right lower extremity deep venous systems. IMPRESSION: No sonographic evidence of left or right lower extremity deep venous thrombosis.
[2022-04-06] MEDS ORDERED: VANCOMYCIN 1 GM/VIAL ONE ×2 (18:49→18:51)
[2022-04-06] MEDS ORDERED: NA CHLORIDE 0.9% 250 ML ONE (18:49)
[2022-04-06] MEDS ORDERED: VANCOMYCIN 1 GM in NA CHLORIDE 0.9% 250 ML IVPB ONE (18:59)
--- NOTE | 2022-04-06 19:55 | P.HP ---
Certification for Inpatient Patient admitted to: Inpatient With expected LOS: >2 Midnights Patient will require the following post-hospital care: None Practitioner: I am a practitioner with admitting privileges, knowledge of patient current condition, hospital course, and medical plan of care. Services: Services provided to patient in accordance with Admission requirements found in Title 42 Section 412.3 of the Code of Federal Regulations <MereChico Ricks - Last Filed: 04/06/22 19:51> Patient History Date of Service: 04/06/22 Reason for admission: RAFAT LE cellulitis History of Present Illness: 82 years with history of GERD, hypertension, hyperlipidemia, previous episodes of cellulitis of her lower extremities presents to the emergency department for cellulitis of bilateral lower extremities. She reports that the redness started on Saturday the but the swelling started 3 to 4 days prior to that. She reports multiple episodes similar in the past, her legs are quite edematous with significant cellulitis all the way up to the knees on both sides. She was evaluated in the emergency department her labs were significant for a white blood cell count of 8.1 hemoglobin 10.7 medical 31.3 sodium 135 creatinine 1.33 GFR 40. So far only sirs criteria she meets his for heart rate greater than 90 she has been afebrile with normal respiratory rate and no white count her lactic acid was also within normal limits. Will admit for further evaluation and management of bilateral lower extremity cellulitis. She was given vancomycin in the emergency department. - Past Medical/Surgical History Diabetic: No -: HTN -: High cholesterol -: Breast Cancer -: GERD -: Lumpectomy 2009 -: Total hip replacement 2008 -: Hysterectomy Psychosocial/ Personal History: Retired, lives at home alone - Family History Father -: Hypertension, Cancer Brother -: Hypertension, Cancer Sister -: Diabetes, Cancer - Social History Smoking Status: Never smoker Alcohol use: No CD- Drugs: No Caffeine use: Yes Place of Residence: Home <Chico Severino - Last Filed: 04/06/22 19:51> Date of Service: 04/07/22 <Erick Kumar - Last Filed: 04/07/22 16:48> Allergies aspirin Allergy (Verified 03/16/15 06:57) STOMACH IRRITATION Penicillins Allergy (Verified 03/16/15 06:57) Hives Home Medications: RX: Lisinopril/Hydrochlorothiazide [Zestoretic 10-12.5 mg Tablet] 2 tab PO DAILY 03/12/13 RX: Famotidine 40 mg PO BID 06/25/21 RX: Lovastatin 10 mg PO BEDTIME 06/25/21 RX: lisinopriL [Lisinopril] 10 mg PO BEDTIME 06/25/21 RX: Nystatin Powder [Mycostatin (Powder)*] 1 appl TOP BID #1 btl 06/26/21 RX: Acetaminophen with Codeine [Acetaminophen-Cod #2 Tablet] 1 tab PO Q6H PRN 04/07/22 Review of Systems 10-point ROS is otherwise unremarkable Musculoskeletal: Leg Pain, As per HPI <Chico Severino - Last Filed: 04/06/22 19:51> Physical Examination - Physical Exam General: Alert, In no apparent distress, Oriented x3 HEENT: Atraumatic, PERRLA, Mucous membr. moist/pink, EOMI, Sclerae nonicteric Neck: Supple, 2+ carotid pulse no bruit, No LAD, Without JVD or thyroid abnormality Respiratory: Clear to auscultation bilaterally, Normal air movement Cardiovascular: Regular rate/rhythm, Normal S1 S2, Edema Gastrointestinal: Normal bowel sounds, No tenderness Musculoskeletal: Swelling, Erythema, Tenderness, Warmth Integumentary: Tenderness/swelling, Erythema (Significant cellulitis bilateral lower extremities from just below the knee all the way down both feet), Warmth Neurological: Normal speech, Normal strength at 5/5 x4 extr, Normal tone, Normal affect Lymphatics: No axilla or inguinal lymphadenopathy - Studies Laboratory Data (last 24 hrs) 04/06/22 17:35: PT 11.9, INR 1.08, APTT 28.0 04/06/22 17:35: Sodium 135 L, Potassium 4.2, BUN 37 H, Creatinine 1.33 H, Glucose 115 H 04/06/22 17:35: WBC 8.1, Hgb 10.7 L, Hct 31.3 L D, Plt Count 333 D <Chico Severino - Last Filed: 04/06/22 19:51> - Studies Laboratory Data (last 24 hrs) 04/06/22 17:35: Total Bilirubin 0.7, AST 19, ALT 22, Alkaline Phosphatase 158 H 04/06/22 17:35: PT 11.9, INR 1.08, APTT 28.0 04/06/22 17:35: Sodium 135 L, Potassium 4.2, BUN 37 H, Creatinine 1.33 H, Glucose 115 H 04/06/22 17:35: WBC 8.1, Hgb 10.7 L, Hct 31.3 L D, Plt Count 333 D <Erick Kumar - Last Filed: 04/07/22 16:48> Assessment and Plan - Plan Assessment: Bilateral lower extremity cellulitis Hypertension Hyperlipidemia GERD Plan: Bilateral lower extremity cellulitis: Blood cultures obtained, patient does not appear to be septic at this time 1 out of 4 SIRS criteria we will continue vancomycin anticipate clinical improvement over the course the next 48 to 72 hours, patient does report multiple similar episodes in the past. Hypertension: Home medications continued Hyperlipidemia: Home medications continued GERD: Home medications continued DVT PPX: Lovenox Code status:full Plan to discharge in: 72 Hours - Advance Directives Does patient have a Living Will: Yes Does patient have a Durable POA for Healthcare: Yes - Code Status/Comfort Care Code Status Assessed: Yes (Full code) Critical Care: No Time Spent Managing Pts Care (In Minutes): 70 <Chico Severino - Last Filed: 04/06/22 19:51> Physician Review: Patient Assessed, Agree with Above Assessment and Plan <Erick Kumar - Last Filed: 04/07/22 16:48>
[2022-04-06 20:06] LABS: Albumin 3.1 g/dL (3.4-5.0); Bilirubin Direct 0.2 mg/dL (0-0.2); Bilirubin Total 0.7 mg/dL (0.2-1.0); Protein, Total 7.5 g/dL (6.4-8.2)
[2022-04-06 20:40] LABS: SARS-CoV-2 Antigen Rapid Res Negative (Negative)
[2022-04-06] MEDS ORDERED: ONDANSETRON 4 MG/2 ML VIAL IV PRN (22:34)
[2022-04-06] MEDS ORDERED: HYDROCODONE/APAP 5/325 MG TAB PO PRN (22:34)
[2022-04-06] MEDS ORDERED: VANCOMYCIN 1 GM in NA CHLORIDE 0.9% 250 ML IVPB SCH (22:34)
[2022-04-06 22:51] VITALS: BMI 34.1
[2022-04-06] MEDS: lisinopriL 10 MG TAB PO SCH (23:43)
[2022-04-06] MEDS: ATORVASTATIN 10 MG TAB PO SCH (23:43)
[2022-04-07] MEDS ORDERED: VANCOMYCIN 500 MG in NA CHLORIDE 0.9% 100 ML IVPB ONE (00:15)
[2022-04-07 04:17] LABS: Absolute Lymphocytes (CBC) 0.9 K/uL (0.7-4.9); Hematocrit 30.4 % (36.0-45.0); Lymphocytes % 13.4 % (15.3-44.8); MCV 90.1 fL (80-100); MPV 7.1 fL (7.6-11.3); RBC Red Blood Cell Count 3.38 M/uL (3.86-4.86)
[2022-04-07 04:44] LABS: Albumin 2.7 g/dL (3.4-5.0); Bilirubin Total 0.5 mg/dL (0.2-1.0); Potassium 4.2 mmol/L (3.5-5.1); Protein, Total 6.8 g/dL (6.4-8.2)
[2022-04-07 04:58] LABS: Troponin High Sensitivity 97.4 pg/mL (<58.9)
[2022-04-07] MEDS: FAMOTIDINE 20 MG TAB PO SCH (08:56)
[2022-04-07] MEDS: lisinopriL 10 MG TAB PO SCH ×2 (08:56→20:20)
[2022-04-07] MEDS ORDERED: ENOXAPARIN 40 MG/0.4 ML SQ SCH (09:00)
[2022-04-07] MEDS ORDERED: hydroCHLOROthiazide 12.5 MG CAP PO SCH (09:00)
--- NOTE | 2022-04-07 16:55 | P.PN ---
Subjective Date of Service: 04/07/22 Chief Complaint: RAFAT LE cellulitis Subjective: No new changes No significant changes since admission. She reports significant pain in her bilateral lower extremities. She denies any fevers or chills. Review of Systems 10-point ROS is otherwise unremarkable Integumentary: Rash (erythema on bilateral lower extremities) Physical Examination - Vital Signs Temperature: 97.3 F Blood Pressure: 114/53 Pulse: 100 Respirations: 14 Pulse Ox (%): 97 - Physical Exam General: Alert, In no apparent distress, Oriented x3 HEENT: Atraumatic, PERRLA, Mucous membr. moist/pink, EOMI, Sclerae nonicteric Neck: Supple, 2+ carotid pulse no bruit Respiratory: Clear to auscultation bilaterally, Normal air movement Cardiovascular: No edema, Regular rate/rhythm, Normal S1 S2, No gallops, No rubs, No murmurs Gastrointestinal: Normal bowel sounds, Soft and benign, Non-distended, No tenderness, No rebound, No guarding Musculoskeletal: No clubbing Integumentary: Tenderness/swelling, Erythema, Warmth, Other (significant erythema, swelling, warmth, and tenderness to bilateral lower extremities from the anterior padilla to the bottom of the knee) Neurological: Normal speech, Normal affect - Studies Laboratory Data (last 24 hrs) 04/06/22 17:35: Total Bilirubin 0.7, AST 19, ALT 22, Alkaline Phosphatase 158 H 04/06/22 17:35: PT 11.9, INR 1.08, APTT 28.0 04/06/22 17:35: Sodium 135 L, Potassium 4.2, BUN 37 H, Creatinine 1.33 H, Glucose 115 H 04/06/22 17:35: WBC 8.1, Hgb 10.7 L, Hct 31.3 L D, Plt Count 333 D Assessment And Plan - Plan # Sepsis likely secondary to Bilateral Cellulitis She met SIRS criteria based on HR > 90 bpm and RR > 20 breaths/min, and the suspected source is cellulitis. - Sepsis order set was initiated - Initial Lactate was 1.1 - Blood cultures drawn - Broad spectrum antibiotics started: vancomycin - In regards to fluids: - 30 mL/kg of IV fluids was not administered given SBP > 90, MAP > 65, lactic acid < 4 - Bilateral lower extremity Doppler ultrasound = "no sonographic evidence of le ft or right lower extremity deep venous thrombosis." # Concern for Demand Ischemia (Type II Non-ST Segment Elevation Myocardial Infarction) # Hypertension # Hyperlipidemia Denies any chest pain, palpitations, shortness of breath, nausea, vomiting, diaphoresis. - Consulted Cardiology and spoke with Dr. Edwards - recommendations appreciated - Unable to give aspirin due to allergy - He recommends against heparinization at this time - He feels that her symptoms are secondary to demand ischemia from cellulitis - Ordered EKG - Serial HS troponin: 76.0 -> 87.1 -> 97.4 - Ordered transthoracic echocardiogram - Ordered chest x-ray - Ordered d-dimer - If positive, obtain CT-chest angiogram - Continue lisinopril, atorvastatin # KDIGO Stage I Acute Kidney Injury, resolved - Suspect pre-renal - Creatinine = 1.33 -> 0.95 - Hold home hydrochlorothiazide - Monitor creatinine and urine output - Renally dose medications # Gastroesophageal Reflux Disease - Continue home famotidine Erick Kumar M.D. Plan to discharge in: Greater than 2 days Physician Review: Patient Assessed, Agree with Above Assessment and Plan
--- NOTE | 2022-04-07 18:39 | RAD REPORT ---
EXAM DESCRIPTION: RAD - Chest Single View - 04/07/2022 6:30 pm CLINICAL HISTORY: elevated trop, CP eval COMPARISON: CHEST SINGLE VIEW dated 05/03/2012; CHEST PA AND LAT 2 VIEW dated 02/08/2010; CHEST SINGLE VIEW dated 12/17/2009; CHEST PA AND LAT 2 VIEW dated 01/24/2009 FINDINGS: Lines: None. Lungs: No evidence of edema or pneumonia. Pleural: No significant pleural effusions or pneumothorax. Cardiac: The heart size is within normal limits. Bones: No acute fractures. Other: IMPRESSION: No acute cardiopulmonary disease.
[2022-04-07] MEDS: ATORVASTATIN 10 MG TAB PO SCH (20:20)
[2022-04-07 21:16] VITALS: O2SAT 97
--- NOTE | 2022-04-07 22:23 | RAD REPORT ---
EXAM DESCRIPTION: CT - Chest Angio - 04/07/2022 10:05 pm CLINICAL HISTORY: rule out PE COMPARISON: RAD THERAPY FLD PLACECHEST dated 06/13/2010; RAD THERAPY FLD PLACECHEST dated 05/03/2010; Extrem Venous W Compress [place] dated 04/06/2022 TECHNIQUE: Dynamically enhanced axial 3 mm thick images of the chest were obtained during administra tion of <100> mL Isovue 370 IV contrast. Coronal and oblique reconstruction images were generated and reviewed. Exam utilizes a protocol for optimal evaluation of pulmonary arterial tree. Maximum intensity projections 3D imaging was utilized All CT scans are performed using dose optimization technique as appropriate and may include automated exposure control or mA/KV adjustment according to patient size. FINDINGS: Chest Wall: No suspicious thyroid nodules or pathologic lymphadenopathy. Lungs: No acute abnormality. Pleura: Small left effusion. Mediastinum/elvin: No pathologic lymphadenopathy. Fluid is present within the esophagus. This could be secondary to reflux. Pulmonary arteries/Aorta: Pulmonary emboli present in the right lower lobe. The overall clot burden i s small. No aortic aneurysm. Heart: No significant pericardial effusion. Normal heart size. Multi-vessel coronary artery disease. Upper abdomen: No acute abnormality. Bones: Acute versus subacute left fourth, fifth, sixth, seventh, eighth, ninth rib fractures. IMPRESSION: Positive for pulmonary embolism with small clot burden in the right lower lobe. Electronic communication sent to Dr. Kumar by Dr. Abernathy at [id number] on 04/07/22.
--- NOTE | 2022-04-07 23:02 | P.PN ---
Date of Service: 04/07/22 CT PE with right sided with small clot burden discussed with Dr. Abernathy, no heart strain noted. Will start on therapeutic lovenox and discuss with patient.
[2022-04-08 04:33] LABS: Absolute Lymphocytes (CBC) 1.3 K/uL (0.7-4.9); Hematocrit 32.7 % (36.0-45.0); Lymphocytes % 18.7 % (15.3-44.8); MCV 90.4 fL (80-100); MPV 7.1 fL (7.6-11.3); RBC Red Blood Cell Count 3.62 M/uL (3.86-4.86)
[2022-04-08 04:55] LABS: Albumin 2.7 g/dL (3.4-5.0); Bilirubin Total 0.5 mg/dL (0.2-1.0); Potassium 3.9 mmol/L (3.5-5.1); Protein, Total 6.9 g/dL (6.4-8.2); Troponin High Sensitivity 114.5 pg/mL (<58.9)
[2022-04-08] MEDS ORDERED: POTASSIUM CL SA 10 MEQ TAB PO ONE (09:00)
[2022-04-08] MEDS: FAMOTIDINE 20 MG TAB PO SCH (09:55)
[2022-04-08] MEDS: lisinopriL 10 MG TAB PO SCH ×2 (09:55→21:14)
--- NOTE | 2022-04-08 10:44 | CON ---
Date of Consultation: 04/08/2022 Reason For Consultation: Elevated troponin, cellulitis, and pulmonary embolus. History Of Present Illness: Ms. Harrington is 82. Has a history of breast cancer in the past, gastroe sophageal reflux disease, hypertension, dyslipidemia, who was admitted with cellulitis. Troponin was mildly elevated at 114. Her D-dimer was 1653. CT angiogram for pulmonary embolus. I was consulted regarding the elevated troponin. The patient denied any chest pain, shortness of breath, nausea, vo miting, diaphoresis, PND, orthopnea. She had pedal edema bilateral with erythema and fever. Past Medical History: As stated above. Allergies: SHE IS ALLERGIC TO PENICILLIN AND ASPIRIN. Review of Systems: Negative. Social History: Negative. Family History: Noncontributory. Medications: At home include Lipitor, lisinopril, hydrochlorothiazide, and lovastatin. Physical Examination: General: She was very pleasant, no acute distress. Vital Signs: Stable, sinus rhythm, afebrile. HEENT: Negative. Neck: Supple with no bruit, lymphadenopathy, JVD, or thyromegaly. Chest: Clear to auscultation and percussion. Cardiac: Revealed a regular rhythm and rate with a tricuspid regurgitation murmur. No gallops. No rubs. Abdomen: Obese, but benign. Extremities: Revealed bilateral cellulitis. Diagnostic Data: As stated earlier. EKG was nonspecific. Chest x-ray is negative. Impression And Plan: 1.Elevated troponin secondary to pulmonary embolus. 2.Cellulitis, on vancomycin. 3.Hypertension, well controlled. 4.Dyslipidemia, well controlled. 5.History of breast cancer. 6.History of gastroesophageal reflux disease. Echocardiogram is pending on Mrs. Harrington. She may deserve an outpatient Lexiscan down the road. I would continue her present regimen. She should even tually be on anticoagulation p.o. either Eliquis or Xarelto protocol for PE. Case was discussed with Dr. Kumar and I will continue to follow her. JUN/AMBREEN Voice ID: [id number] Report ID: [id number]
[2022-04-08] MEDS ORDERED: VANCOMYCIN 1.5 GM in NA CHLORIDE 0.9% 500 ML IVPB SCH ×2 (13:00→14:00)
--- NOTE | 2022-04-08 16:54 | P.PN ---
Subjective Date of Service: 04/08/22 Chief Complaint: RAFAT LE cellulitis Overnight, her CT chest angiogram returned positive for a right lower lobe pulmonary embolism. She reports improvement in her lower extremity swelling. She denies any fevers or chills. Review of Systems 10-point ROS is otherwise unremarkable Integumentary: Rash (BLE cellulitis) Physical Examination - Vital Signs Temperature: 98.4 F Blood Pressure: 132/60 Pulse: 97 Respirations: 14 Pulse Ox (%): 97 Assessment And Plan - Plan - Physical Exam General: Alert, In no apparent distress, Oriented x3 HEENT: Atraumatic, PERRLA, Mucous membr. moist/pink, EOMI, Sclerae nonicteric Neck: Supple, 2+ carotid pulse no bruit Respiratory: Clear to auscultation bilaterally, Normal air movement Cardiovascular: No edema, Regular rate/rhythm, Normal S1 S2, No gallops, No rubs, No murmurs Gastrointestinal: Normal bowel sounds, Soft and benign, Non-distended, No tenderness, No rebound, No guarding Musculoskeletal: No clubbing Integumentary: Tenderness/swelling, Erythema, Warmth, Other (erythema, swelling, warmth, and tenderness to bilateral lower extremities from the anterior padilla to the bottom of the knee improved compared to yesterday) Neurological: Normal speech, Normal affect Assessment And Plan - Plan # Sepsis likely secondary to Bilateral Cellulitis She met SIRS criteria based on HR > 90 bpm and RR > 20 breaths/min, and the suspected source is cellulitis. - Sepsis order set was initiated - Initial Lactate was 1.1 - Blood cultures drawn - Broad spectrum antibiotics started: vancomycin - In regards to fluids: - 30 mL/kg of IV fluids was not administered given SBP > 90, MAP > 65, lactic acid < 4 - Bilateral lower extremity Doppler ultrasound = "no sonographic evidence of left or right lower extremity deep venous thrombosis." # Acute Right Lower Lobe Pulmonary Embolism Per SMOKE JUMPER Austina, he spoke with Dr. Abernathy, there is no evidence of right-heart strain on the CT chest angiogram. - Continue SQ enoxaparin - plan to transition to apixaban tomorrow # Concern for Demand Ischemia (Type II Non-ST Segment Elevation Myocardial Infarction) # Hypertension # Hyperlipidemia Denies any chest pain, palpitations, shortness of breath, nausea, vomiting, diaphoresis. - Consulted Cardiology and spoke with Dr. Edwards - recommendations appreciated - Unable to give aspirin due to allergy - He feels that her symptoms are secondary to demand ischemia from her pulmonary embolism - Ordered EKG - Serial HS troponin: 76.0 -> 87.1 -> 97.4 - Ordered transthoracic echocardiogram - Continue lisinopril, atorvastatin # KDIGO Stage I Acute Kidney Injury, resolved - Suspect pre-renal - Creatinine = 1.33 -> 0.95 - Hold home hydrochlorothiazide - Monitor creatinine and urine output - Renally dose medications # Gastroesophageal Reflux Disease - Continue home famotidine Erick Kumar M.D. Physician Review: Patient Assessed, Agree with Above Assessment and Plan
[2022-04-08] MEDS: ATORVASTATIN 10 MG TAB PO SCH (21:13)
[2022-04-08] MEDS ORDERED: ENOXAPARIN 100 MG/ML SYR SQ SCH (22:51)
[2022-04-09 06:00] LABS: Absolute Lymphocytes (CBC) 0.8 K/uL (0.7-4.9); Hematocrit 30.7 % (36.0-45.0); MCV 90.7 fL (80-100); MPV 6.7 fL (7.6-11.3); RBC Red Blood Cell Count 3.38 M/uL (3.86-4.86)
[2022-04-09 06:18] LABS: Albumin 2.5 g/dL (3.4-5.0); Bilirubin Total 0.4 mg/dL (0.2-1.0); Potassium 3.6 mmol/L (3.5-5.1); Protein, Total 6.3 g/dL (6.4-8.2)
--- NOTE | 2022-04-09 08:06 | P.DS ---
Admission Date: 04/06/22 Discharge Date: 04/09/22 Primary Care Provider: Dr. Collazo Disposition: ROUTINE DISCHARGE Discharge Condition: GOOD Reason for Admission: RAFAT LE cellulitis Consultations: 1. Cardiology Hospital Course: DIAGNOSES: # Sepsis likely secondary to Bilateral Lower Extremity Cellulitis # Acute Right Lower Lobe Pulmonary Embolism # Concern for Demand Ischemia (Type II Non-ST Segment Elevation Myocardial Infarction) # Hypertension # Hyperlipidemia # KDIGO Stage I Acute Kidney Injury, resolved # Gastroesophageal Reflux Disease # Acute versus Subacute Left 4th-9th Rib Fractures HOSPITAL COURSE: Ms. Kerrie Harrington is a pleasant 82-year-old female with a past medical history significant for hypertension, hyperlipidemia, and gastroesophageal reflux disease who was admitted to the [facility] on 04/06/2022 for bilateral lower extremity cellulitis. Upon further evaluation, she was found to have sepsis due to the bilateral lower extremity cellulitis. She was treated with IV vancomycin with significant improvement in her symptoms. A bilateral lower extremity Doppler ultrasound was also performed, which revealed, "no sonographic evidence of left or right lower extremity deep venous thrombosis." Incidentally, she was found to have elevated troponin. Cardiology was consulted and initially thought these troponins to be secondary to demand ischemia from her cellulitis. However further evaluation would reveal an acute right lower lobe pulmonary embolism. There was no evidence of right heart strain on either the CT chest angiogram or the transthoracic echocardiogram. Today, I offered to arrange home health for wound care of her bilateral lower extremities; however, she declined because she states that her daughter is trained in this field and is comfortable taking care of her lower extremities. I have verbalized understanding and stated that, should she change her mind, she is more than welcome to call us and we can help arrange with home health. I also offered to arrange physical therapy due to her pain from her left rib fractures, but she declined this service as well. On 04/09/2022, she was seen on morning rounds and deemed medically stable for discharge. She was discharged with instructions to schedule follow-up appointments with her PCP (Dr. Collazo) in 3-5 days and with cardiology (Dr. Edwards) in 5-7 days. She was provided prescriptions for cephalexin, doxycycline, and apixaban. She and her family members were given the opportunity to ask questions and reported no further questions. Furthermore, all questions were answered to the best of my ability. Today, I personally spent 20 minutes on her case, of which greater than 50% of the time was spent in patient education, counseling, and coordination of care as described above. - Physical Exam General: Alert, In no apparent distress, Oriented x3 HEENT: Atraumatic, PERRLA, Mucous membr. moist/pink, EOMI, Sclerae nonicteric Neck: Supple, 2+ carotid pulse no bruit Respiratory: Clear to auscultation bilaterally, Normal air movement Cardiovascular: No edema, Regular rate/rhythm, Normal S1 S2, No gallops, No rubs, No murmurs Gastrointestinal: Normal bowel sounds, Soft and benign, Non-distended, No tenderness, No rebound, No guarding Musculoskeletal: No clubbing Integumentary: Minimal tenderness/swelling, Erythema, Warmth, to the anterior padilla Neurological: Normal speech, Normal affect Vital Signs/Physical Exam: Temp Pulse Resp BP Pulse Ox 98.3 F 99 H 18 155/63 H 95 04/09/22 04:00 04/09/22 04:00 04/09/22 04:00 04/09/22 04:00 04/09/22 04:00 Laboratory Data at Discharge: WBC 6.3 K/uL (4.3-10.9) 04/09/22 05:38 Hgb 10.6 g/dL (12.0-15.0) L 04/09/22 05:38 Hct 30.7 % (36.0-45.0) L 04/09/22 05:38 Plt Count 348 K/uL (152-406) 04/09/22 05:38 PT 11.9 SECONDS (9.5-12.5) 04/06/22 17:35 INR 1.08 04/06/22 17:35 APTT 28.0 SECONDS (24.3-36.9) 04/06/22 17:35 Sodium 137 mmol/L (136-145) 04/09/22 05:38 Potassium 3.6 mmol/L (3.5-5.1) 04/09/22 05:38 BUN 7 mg/dL (7-18) 04/09/22 05:38 Creatinine 0.71 mg/dL (0.55-1.3) 04/09/22 05:38 Glucose 113 mg/dL (74-106) H 04/09/22 05:38 Total Bilirubin 0.4 mg/dL (0.2-1.0) 04/09/22 05:38 AST 13 U/L (15-37) L 04/09/22 05:38 ALT 18 U/L (12-78) 04/09/22 05:38 Alkaline Phosphatase 133 U/L (45-117) H 04/09/22 05:38 Home Medications: Famotidine 40 mg PO BID 06/25/21 Lovastatin 10 mg PO BEDTIME 06/25/21 lisinopriL [Lisinopril] 10 mg PO BEDTIME 06/25/21 Nystatin Powder [Mycostatin (Powder)*] 1 appl TOP BID #1 btl 06/26/21 Acetaminophen with Codeine [Acetaminophen-Cod #2 Tablet] 1 tab PO Q6H PRN 04/07/22 Apixaban [Eliquis] 5 mg PO BID #60 tablet 04/09/22 Doxycycline Hyclate 100 mg PO BID #14 tablet 04/09/22 cephALEXin [Cephalexin] 500 mg PO BID #14 capsule 04/09/22 New Medications: cephALEXin [Cephalexin] 500 mg PO BID #14 capsule Doxycycline Hyclate 100 mg PO BID #14 tablet Apixaban [Eliquis] 5 mg PO BID #60 tablet Diet: AHA Activity: Fall precautions Followup: Jocelyn Collazo DO [Primary Care Provider] - 1-2 Weeks (Call to schedule an appointment.) Benito Edwards MD [ACTIVE - CAN ADMIT] - Time spent managing pt's care (in minutes): 20
[2022-04-09] MEDS ORDERED: POTASSIUM CL SA 10 MEQ TAB PO ONE (09:00)
[2022-04-09] MEDS ORDERED: APIXABAN 5 MG TABLET PO SCH (09:00)
--- NOTE | 2022-04-09 09:29 | EKG ---
Test Date: 2022-04-07 Test Time: 17:35:49 Truck Terminal Manager: KV MEASUREMENT RESULTS: Intervals: Rate: 99 OH: 154 QRSD: 84 QT: 340 QTc: 436 [place]: P: 63 OH: 154 QRS: 34 T: 64 INTERPRETIVE STATEMENTS: Normal sinus rhythm Normal ECG Compared to ECG 04/06/2022 17:17:36 Sinus tachycardia no longer present Myocardial infarct finding no longer present Electronically Signed On 04-09-22 09:25:05 CDT by Benito Edwards
--- NOTE | 2022-04-09 09:32 | EKG ---
Test Date: 2022-04-06 Test Time: 17:17:36 Biochemistry Technician: SIMON MEASUREMENT RESULTS: Intervals: Rate: 103 GA: 158 QRSD: 78 QT: 330 QTc: 432 [place]: P: 58 GA: 158 QRS: 39 T: 52 INTERPRETIVE STATEMENTS: Sinus tachycardia Possible Anterolateral infarct, age undetermined Abnormal ECG Compared to ECG 03/15/2015 12:00:24 Myocardial infarct finding now present Sinus rhythm no longer present Sinus arrhythmia no longer present Electronically Signed On 04-09-22 09:25:17 CDT by Benito Edwards
[2022-04-09] MEDS: FAMOTIDINE 20 MG TAB PO SCH (09:35)
[2022-04-09] MEDS: lisinopriL 10 MG TAB PO SCH (09:36)
[2022-04-09 12:27] VITALS: BP 147/64; TEMP 98.3
--- NOTE | 2022-04-09 13:59 | ECHO ---
HEIGHT: 5 ft 4 in WEIGHT: 199 lb 0 oz DATE OF STUDY: 04/09/[address]: Benito Edwards MD 2-DIMENSIONAL: YES M.MODE: YES DOPPLER: YES COLOR FLOW: YES TDS: NO PORTABLE: YES DEFINITY: NO BUBBLE STUDY: NO DIAGNOSIS: PE CARDIAC HISTORY: CATHERIZATION: SURGERY: PROSTHETIC VALVE: PACEMAKER: MEASUREMENTS (cm) DIASTOLIC (NORMALS) SYSTOLIC (NORMALS) IVSd 1.2 (0.6-1.2) LA Diam 3.4 (1.9-4.0) LVEF 55-60% LVIDd 3.9 (3.5-5.7) LVIDs 2.9 (2.0-3.5) %FS 26% LVPWd 1.2 (0.6-1.2) Ao Diam 2.6 (2.0-3.7) 2 DIMENSIONAL ASSESSMENT: RIGHT ATRIUM: NORMAL LEFT ATRIUM: NORMAL RIGHT VENTRICLE: NORMAL LEFT VENTRICLE: NORMAL TRICUSPID VALVE: NORMAL MITRAL VALVE: NORMAL PULMONIC VALVE: NORMAL AORTIC VALVE: NORMAL PERICARDIAL EFFUSION: NONE AORTIC ROOT: NORMAL LEFT VENTRICULAR WALL MOTION: NORMAL DOPPLER/COLOR FLOW: NORMAL COMMENTS: NORMAL LEFT VENTRICULAR EJECTION FRACTION 55-60%. NORMAL WALL MOTION. GRADE I DIASTOLIC DYSFUNCTION. TECHNOLOGIST: Geneva BARKER
--- NOTE | 2022-04-10 10:50 | PN ---
Date of Progress Note: 04/09/2022 Ms. Harrington had come in with diastolic congestive heart failure, pulmonary embolus, cellulitis, elev ated troponin, has a history of hypertension and diabetes. Echocardiogram was done because of elevat ed troponin, which was perfectly normal without any significant pulmonary hypertension. I believe th e troponin elevation is secondary to pulmonary embolus. She should go home on either Eliquis or Xare lto per the protocol, and I will leave that up to Dr. Kumar. We will follow up as an outpatient. JUN/AMBREEN Voice ID: [id number] Report ID: [id number]
== END 2022-04-09 13:00 | disposition home or self-care (01) | DRG 871 ==
LOC: ER 16:15 → ERHOLD 19:21 → 2ND 21:47
PROVIDERS: ADMIT Internal Medicine; ATTEND Internal Medicine
DX: A41.9 Sepsis, unspecified organism (principal); I21.A1 Myocardial infarction type 2; I26.99 Other pulmonary embolism without acute cor pulmonale; S22.42XA Multiple fractures of ribs, left side, initial encounter for closed fracture; L03.116 Cellulitis of left lower limb; L03.115 Cellulitis of right lower limb; N17.9 Acute kidney failure, unspecified; K21.9 Gastro-esophageal reflux disease without esophagitis; I10 Essential (primary) hypertension; Z85.3 Personal history of malignant neoplasm of breast; Z96.649 Presence of unspecified artificial hip joint; E78.5 Hyperlipidemia, unspecified; Z88.6 Allergy status to analgesic agent; Z88.0 Allergy status to penicillin; R77.8 Other specified abnormalities of plasma proteins; Z20.822 Contact with and (suspected) exposure to COVID-19
CPT/HCPCS: 36415; 71045; 71275; 80048; 80053; 80076; 80202; 83605; 83880; 84484; 85025; 85379; 85610; 85730; 87040; 87811; 93005; 93306; 93970; 96365; 96366; 99285; J1650; J3370; J7040; J7050; Q9967

== ENCOUNTER 2024-04-21 20:31 | Emergency (ER) | payer OTHER ==
--- OUTSIDE RECORDS SUMMARY | 2024-04-21 20:35 | XMS REPORT | Continuity of Care Document ---
Author Name Unknown Address [address] [facility] [place] [address] [facility] Address [address] [facility] [place] [address] Care Team Providers Care Thermoforming Operator Name Role Phone Dagoberto Hopper Attending Clinician Unavailable Monty Robin Attending Clinician Unavailable Becca Mcgill Attending Clinician Unavailable Jocelyn Collazo Attending Clinician Unavailable [email or web address]_S Attending Clinician Unavaila ble [email or web address]_S Admitting Clinician Unavaila ble Payers Payer Name Policy Type Policy Number Effective Date Expirati on Date Source AET[employer] MEDICARE 53 [id number] 2021 00:00:00 [facility] AETNA MEDICARE 53 [id number] 2013 00:00:00 [facility] MEDICARE NOVITAS [id number] 2005 00:00:00 [facility] [id number] 2005 00:00:00 [facility] [id number] 2005 00:00:00 [facility] [id number] 2005 00:00:00 [facility] Problems Condition Name Condition Details Condition Category Status Onset Date Resolution Date Last Treatment Date Treating Clinician Comments Source [id number] Primary osteoarthr itis of left knee Problem [facility] Hyperchole sterolemia Hyperchole sterolemia Problem [facility] Fibrocysti c breast changes Fibrocysti c breast disease Problem [facility] Iron deficiency anemia Iron deficiency anemia Problem [facility] Vitamin B12 deficiency (non anemic) Vitamin B 12 deficiency Problem [facility] Obese Obese Problem [facility] Essential hypertensi on Benign essential HTN Problem [facility] [id number] Cellulitis of right lower extremity Problem [facility] Hyperglyce genoveva Hyperglyce genoveva Problem [facility] [id number] GERD without esophagiti s Problem [facility] [id number] Other obesity due to excess calories Problem [facility] [id number] Body mass index [BMI] 30.0-30.9, adult Problem [facility] [id number] Edema, lower extremity Problem [facility] [id number] Pneumococc al vaccinatio n administer ed during current admission Problem [facility] [id number] Adult general medical exam Problem [facility] [id number] Primary osteoarthr itis, left shoulder Problem [facility] [id number] PVD (periphera l vascular disease) Problem [facility] Osteoarthr itis Osteoarthr itis involving multiple joints on both sides of body Problem [facility] Chronic kidney disease stage 3 Stage 3 chronic kidney disease, unspecifie d whether stage 3a or 3b CKD Problem [facility] [id number] Urticaria Problem [facility] Malignant neoplasm of female breast Breast CA Problem [facility] Vitamin deficiency Encounter for vitamin deficiency screening Problem [facility] [id number] Need for Tdap vaccinatio n Problem [facility] [id number] Acute sinusitis, unspecifie d Problem [facility] [id number] Vitamin D deficiency Problem [facility] Allergies, Adverse Reactions, Alerts Allergy Name Allergy Type Status Severity Reaction(s) Onset Date Inactive Date Treating Clinician Comments Source aspirin aspirin Active stomach upset [facility] [id number] Drug allergy Active rash [facility] Social History Social Habit Start Date Stop Date Quantity Comments Source History of Tobacco Use 1985-09-15 00:00:00 [facility] Sex Assigned At [facility] Smoking Status Start Date Stop Date Source Former Smoker 2024-03-06 00:00:00 2024-03-06 00:00:00 [facility] Never Smoker [facility] Medications Ordered Medication Name Filled Medication Name Start Date Stop Date Current Medication? Ordering Clinician Indication Dosage Frequency Signature (SIG) Comments Components Source Bupivicaine [place] Bupivicaine [place] 03-13 00:00: 00 No 2.5mg [facility] Kenalog (Triamcinol one) Kenalog (Triamcinol one) 1- 00:00: 00 No 40mg [facility] Lovastatin 10 MG Lovastatin 10 MG No Lovastatin 10 MG Famotidine 40 MG Famotidine 40 MG No 1{table t_as_ne eded} BID Famotidine 40 MG Lisinopril 20 MG Lisinopril 20 MG No 1{table t} QD Lisinopril 20 MG Centrum Silver 50+Women - Centrum Silver 50+Women - No Centrum Silver 50+Women - Lisinopril- hydroCHLORO thiazide 20-12.5 MG Lisinopril- hydroCHLORO thiazide 20-12.5 MG No 1{table t} QD Lisinopril -hydroCHLO ROthiazide 20-12.5 MG Immunizations Ordered Immunization Name Filled Immunization Name Date Status Comments Source FLUZONE HIGH DOSE OVER 65 FLUZONE HIGH DOSE OVER 65 2022-06-21 14:41:00 Completed [facility] FLUZONE HIGH DOSE OVER 65 FLUZONE HIGH DOSE OVER 65 2022-06-21 14:41:00 Completed [facility] FluAD FluAD 2021-07-13 13:22:00 Completed [facility] FluAD FluAD 2021-07-13 13:22:00 Completed [facility] FluAD FluAD 2021-07-13 13:22:00 Completed [facility] FluAD FluAD 2021-07-13 13:22:00 Completed [facility] FluAD FluAD 2021-07-13 13:22:00 Completed [facility] FluAD FluAD 2021-07-13 13:22:00 Completed [facility] FluAD FluAD 2021-07-13 13:22:00 Completed [facility] FluAD FluAD 2021-07-13 13:22:00 Completed [facility] FluAD FluAD 2021-07-13 13:22:00 Completed [facility] FluAD FluAD 2021-07-13 13:22:00 Completed [facility] FluAD FluAD 2021-07-13 13:22:00 Completed [facility] FluAD FluAD 2021-07-13 13:22:00 Completed [facility] FluAD FluAD 2021-07-13 13:22:00 Completed [facility] FluAD FluAD 2021-07-13 13:22:00 Completed [facility] FluAD FluAD 2021-07-13 13:22:00 Completed [facility] FluAD FluAD 2021-07-13 13:22:00 Completed [facility] FluAD FluAD 2021-07-13 13:22:00 Completed [facility] FluAD FluAD 2021-07-13 13:22:00 Completed [facility] FluAD FluAD 2020-06-13 16:53:00 Completed [facility] FluAD FluAD 2020-06-13 16:53:00 Completed [facility] FluAD FluAD 2020-06-13 16:53:00 Completed [facility] FluAD FluAD 2020-06-13 16:53:00 Completed [facility] FluAD FluAD 2020-06-13 16:53:00 Completed [facility] FluAD FluAD 2020-06-13 16:53:00 Completed [facility] FluAD FluAD 2020-06-13 16:53:00 Completed [facility] FluAD FluAD 2020-06-13 16:53:00 Completed [facility] FluAD FluAD 2020-06-13 16:53:00 Completed [facility] FluAD FluAD 2020-06-13 16:53:00 Completed [facility] FluAD FluAD 2020-06-13 16:53:00 Completed [facility] FluAD FluAD 2020-06-13 16:53:00 Completed [facility] FluAD FluAD 2020-06-13 16:53:00 Completed [facility] FluAD FluAD 2020-06-13 16:53:00 Completed [facility] FluAD FluAD 2020-06-13 16:53:00 Completed [facility] FluAD FluAD 2020-06-13 16:53:00 Completed [facility] FluAD FluAD 2020-06-13 16:53:00 Completed [facility] FluAD FluAD 2020-06-13 16:53:00 Completed [facility] FluAD FluAD 2020-06-13 16:53:00 Completed [facility] FluAD FluAD 2019-06-24 13:12:00 Completed [facility] FluAD FluAD 2019-06-24 13:12:00 Completed [facility] FluAD FluAD 2019-06-24 13:12:00 Completed [facility] FluAD FluAD 2019-06-24 13:12:00 Completed [facility] FluAD FluAD 2019-06-24 13:12:00 Completed [facility] FluAD FluAD 2019-06-24 13:12:00 Completed [facility] FluAD FluAD 2019-06-24 13:12:00 Completed [facility] FluAD FluAD 2019-06-24 13:12:00 Completed [facility] FluAD FluAD 2019-06-24 13:12:00 Completed [facility] FluAD FluAD 2019-06-24 13:12:00 Completed [facility] FluAD FluAD 2019-06-24 13:12:00 Completed [facility] FluAD FluAD 2019-06-24 13:12:00 Completed [facility] FluAD FluAD 2019-06-24 13:12:00 Completed [facility] FluAD FluAD 2019-06-24 13:12:00 Completed [facility] FluAD FluAD 2019-06-24 13:12:00 Completed [facility] FluAD FluAD 2019-06-24 13:12:00 Completed [facility] FluAD FluAD 2019-06-24 13:12:00 Completed [facility] FluAD FluAD 2019-06-24 13:12:00 Completed [facility] FluAD FluAD 2019-06-24 13:12:00 Completed [facility] FluAD FluAD 2019-06-24 00:00:00 Completed [facility] Prevnar 13 -Pneumonia Vaccine Prevnar 13 -Pneumonia Vaccine 2018-05-21 17:07:00 Completed [facility] Adacel (Tdap) Adacel (Tdap) 2018-05-21 17:07:00 Completed [facility] Prevnar 13 -Pneumonia Vaccine Prevnar 13 -Pneumonia Vaccine 2018-05-21 17:07:00 Completed [facility] Adacel (Tdap) Adacel (Tdap) 2018-05-21 17:07:00 Completed [facility] Prevnar 13 -Pneumonia Vaccine Prevnar 13 -Pneumonia Vaccine 2018-05-21 17:07:00 Completed [facility] Adacel (Tdap) Adacel (Tdap) 2018-05-21 17:07:00 Completed [facility] Prevnar 13 -Pneumonia Vaccine Prevnar 13 -Pneumonia Vaccine 2018-05-21 17:07:00 Completed [facility] Adacel (Tdap) Adacel (Tdap) 2018-05-21 17:07:00 Completed [facility] Prevnar 13 -Pneumonia Vaccine Prevnar 13 -Pneumonia Vaccine 2018-05-21 17:07:00 Completed [facility] Adacel (Tdap) Adacel (Tdap) 2018-05-21 17:07:00 Completed [facility] Prevnar 13 -Pneumonia Vaccine Prevnar 13 -Pneumonia Vaccine 2018-05-21 17:07:00 Completed [facility] Adacel (Tdap) Adacel (Tdap) 2018-05-21 17:07:00 Completed [facility] Prevnar 13 -Pneumonia Vaccine Prevnar 13 -Pneumonia Vaccine 2018-05-21 17:07:00 Completed [facility] Adacel (Tdap) Adacel (Tdap) 2018-05-21 17:07:00 Completed [facility] Prevnar 13 -Pneumonia Vaccine Prevnar 13 -Pneumonia Vaccine 2018-05-21 17:07:00 Completed [facility] Adacel (Tdap) Adacel (Tdap) 2018-05-21 17:07:00 Completed [facility] Prevnar 13 -Pneumonia Vaccine Prevnar 13 -Pneumonia Vaccine 2018-05-21 17:07:00 Completed [facility] Adacel (Tdap) Adacel (Tdap) 2018-05-21 17:07:00 Completed [facility] Prevnar 13 -Pneumonia Vaccine Prevnar 13 -Pneumonia Vaccine 2018-05-21 17:07:00 Completed [facility] Adacel (Tdap) Adacel (Tdap) 2018-05-21 17:07:00 Completed [facility] Prevnar 13 -Pneumonia Vaccine Prevnar 13 -Pneumonia Vaccine 2018-05-21 17:07:00 Completed [facility] Adacel (Tdap) Adacel (Tdap) 2018-05-21 17:07:00 Completed [facility] Prevnar 13 -Pneumonia Vaccine Prevnar 13 -Pneumonia Vaccine 2018-05-21 17:07:00 Completed [facility] Adacel (Tdap) Adacel (Tdap) 2018-05-21 17:07:00 Completed [facility] Prevnar 13 -Pneumonia Vaccine Prevnar 13 -Pneumonia Vaccine 2018-05-21 17:07:00 Completed [facility] Adacel (Tdap) Adacel (Tdap) 2018-05-21 17:07:00 Completed [facility] Prevnar 13 -Pneumonia Vaccine Prevnar 13 -Pneumonia Vaccine 2018-05-21 17:07:00 Completed [facility] Adacel (Tdap) Adacel (Tdap) 2018-05-21 17:07:00 Completed [facility] Prevnar 13 -Pneumonia Vaccine Prevnar 13 -Pneumonia Vaccine 2018-05-21 17:07:00 Completed [facility] Adacel (Tdap) Adacel (Tdap) 2018-05-21 17:07:00 Completed [facility] Prevnar 13 -Pneumonia Vaccine Prevnar 13 -Pneumonia Vaccine 2018-05-21 17:07:00 Completed [facility] Adacel (Tdap) Adacel (Tdap) 2018-05-21 17:07:00 Completed [facility] Prevnar 13 -Pneumonia Vaccine Prevnar 13 -Pneumonia Vaccine 2018-05-21 17:07:00 Completed [facility] Adacel (Tdap) Adacel (Tdap) 2018-05-21 17:07:00 Completed [facility] Prevnar 13 -Pneumonia Vaccine Prevnar 13 -Pneumonia Vaccine 2018-05-21 17:07:00 Completed [facility] Adacel (Tdap) Adacel (Tdap) 2018-05-21 17:07:00 Completed [facility] Prevnar 13 -Pneumonia Vaccine Prevnar 13 -Pneumonia Vaccine 2018-05-21 17:07:00 Completed [facility] Adacel (Tdap) Adacel (Tdap) 2018-05-21 17:07:00 Completed [facility] TDAP > 7 Years-Adacel TDAP > 7 Years-Adacel 2018-05-21 00:00:00 Completed [facility] Prevnar 13 -Pneumonia Vaccine Prevnar 13 -Pneumonia Vaccine 2018-05-21 00:00:00 Completed [facility] Kenalog (Triamcinolone) Kenalog (Triamcinolone) 2017-10-10 12:08:00 Completed [facility] Kenalog (Triamcinolone) Kenalog (Triamcinolone) 2017-10-10 12:08:00 Completed [facility] FluAD FluAD Unknown Completed [facility] FluAD FluAD Unknown Completed [facility] FluAD FluAD Unknown Completed [facility] Prevnar 13 -Pneumonia Vaccine Prevnar 13 -Pneumonia Vaccine Unknown Completed [facility] FLUZONE HIGH DOSE OVER 65 FLUZONE HIGH DOSE OVER 65 Unknown Completed [facility] Adacel (Tdap) Adacel (Tdap) Unknown Completed [facility] FluAD FluAD Unknown Completed [facility] FluAD FluAD Unknown Completed [facility] FluAD FluAD Unknown Completed [facility] Prevnar 13 -Pneumonia Vaccine Prevnar 13 -Pneumonia Vaccine Unknown Completed [facility] FLUZONE HIGH DOSE OVER 65 FLUZONE HIGH DOSE OVER 65 Unknown Completed [facility] Adacel (Tdap) Adacel (Tdap) Unknown Completed Co [facility] FluAD FluAD Unknown Completed [facility] FluAD FluAD Unknown Completed [facility] FluAD FluAD Unknown Completed [facility] Prevnar 13 -Pneumonia Vaccine Prevnar 13 -Pneumonia Vaccine Unknown Completed [facility] FLUZONE HIGH DOSE OVER 65 FLUZONE HIGH DOSE OVER 65 Unknown Completed [facility] Adacel (Tdap) Adacel (Tdap) Unknown Completed [facility] FluAD FluAD Unknown Completed [facility] FluAD FluAD Unknown Completed [facility] FluAD FluAD Unknown Completed [facility] Prevnar 13 -Pneumonia Vaccine Prevnar 13 -Pneumonia Vaccine Unknown Completed [facility] FLUZONE HIGH DOSE OVER 65 FLUZONE HIGH DOSE OVER 65 Unknown Completed [facility] Adacel (Tdap) Adacel (Tdap) Unknown Completed [facility] FluAD FluAD Unknown Completed [facility] FluAD FluAD Unknown Completed [facility] FluAD FluAD Unknown Completed [facility] Prevnar 13 -Pneumonia Vaccine Prevnar 13 -Pneumonia Vaccine Unknown Completed [facility] FLUZONE HIGH DOSE OVER 65 FLUZONE HIGH DOSE OVER 65 Unknown Completed [facility] Adacel (Tdap) Adacel (Tdap) Unknown Completed [facility] FluAD FluAD Unknown Completed [facility] FluAD FluAD Unknown Completed [facility] FluAD FluAD Unknown Completed [facility] Prevnar 13 -Pneumonia Vaccine Prevnar 13 -Pneumonia Vaccine Unknown Completed [facility] FLUZONE HIGH DOSE OVER 65 FLUZONE HIGH DOSE OVER 65 Unknown Completed [facility] Adacel (Tdap) Adacel (Tdap) Unknown Completed [facility] FluAD FluAD Unknown Completed [facility] FluAD FluAD Unknown Completed [facility] FluAD FluAD Unknown Completed [facility] Prevnar 13 -Pneumonia Vaccine Prevnar 13 -Pneumonia Vaccine Unknown Completed [facility] FLUZONE HIGH DOSE OVER 65 FLUZONE HIGH DOSE OVER 65 Unknown Completed [facility] Adacel (Tdap) Adacel (Tdap) Unknown Completed [facility] FluAD FluAD Unknown Completed [facility] FluAD FluAD Unknown Completed [facility] FluAD FluAD Unknown Completed [facility] Prevnar 13 -Pneumonia Vaccine Prevnar 13 -Pneumonia Vaccine Unknown Completed [facility] FLUZONE HIGH DOSE OVER 65 FLUZONE HIGH DOSE OVER 65 Unknown Completed [facility] Adacel (Tdap) Adacel (Tdap) Unknown Completed [facility] FluAD FluAD Unknown Completed [facility] FluAD FluAD Unknown Completed [facility] FluAD FluAD Unknown Completed [facility] Prevnar 13 -Pneumonia Vaccine Prevnar 13 -Pneumonia Vaccine Unknown Completed [facility] FLUZONE HIGH DOSE OVER 65 FLUZONE HIGH DOSE OVER 65 Unknown Completed [facility] Adacel (Tdap) Adacel (Tdap) Unknown Completed [facility] Vital Signs Vital Name Observation Time Observation Value Comments S ource height 2024-03-06 10:30:00 66.00 [in_i] Com mon [facility] temperature 2024-03-06 10:30:00 98 [degF] Comm on [facility] oximetry 2024-03-06 10:30:00 95 % Commo n [facility] blood pressure systolic 2024-03-06 10:30:00 134 mm[Hg] [facility] blood pressure diastolic 2024-03-06 10:30:00 64 mm[Hg] [facility] height 2024-03-06 10:30:00 66.00 [in_i] Com [facility] temperature 2024-03-06 10:30:00 98 [degF] Comm on [facility] oximetry 2024-03-06 10:30:00 95 % Commo n [facility] blood pressure systolic 2024-03-06 10:30:00 134 mm[Hg] [facility] blood pressure diastolic 2024-03-06 10:30:00 64 mm[Hg] [facility] height 2023-09-03 10:30:00 66.00 [in_i] Com [facility] weight 2023-09-03 10:30:00 188.5 [lb_av] Co [facility] temperature 2023-09-03 10:30:00 98.2 [degF] Com [facility] bmi 2023-09-03 10:30:00 30.42 kg/m2 Comm on [facility] oximetry 2023-09-03 10:30:00 95 % Commo n [facility] blood pressure systolic 2023-09-03 10:30:00 138 mm[Hg] [facility] blood pressure diastolic 2023-09-03 10:30:00 78 mm[Hg] [facility] height 2023-03-11 10:10:00 66.00 [in_i] Com [facility] weight 2023-03-11 10:10:00 188.5 [lb_av] Co on [facility] temperature 2023-03-11 10:10:00 97.7 [degF] Com [facility] bmi 2023-03-11 10:10:00 30.42 kg/m2 Comm on [facility] oximetry 2023-03-11 10:10:00 95 % Commo n [facility] respiratory rate 2023-03-11 10:10:00 16 /min [facility] blood pressure systolic 2023-03-11 10:10:00 140 mm[Hg] [facility] blood pressure diastolic 2023-03-11 10:10:00 63 mm[Hg] [facility] height 2023-03-11 10:10:00 66.00 [in_i] Com [facility] weight 2023-03-11 10:10:00 188.5 [lb_av] Co mmon [facility] temperature 2023-03-11 10:10:00 97.7 [degF] Com [facility] bmi 2023-03-11 10:10:00 30.42 kg/m2 Comm on [facility] oximetry 2023-03-11 10:10:00 95 % Commo n [facility] respiratory rate 2023-03-11 10:10:00 16 /min [facility] blood pressure systolic 2023-03-11 10:10:00 140 mm[Hg] [facility] blood pressure diastolic 2023-03-11 10:10:00 63 mm[Hg] Common [facility] height 2022-12-27 11:20:00 66.00 [in_i] Com [facility] weight 2022-12-27 11:20:00 188.5 [lb_av] Co mmon [facility] temperature 2022-12-27 11:20:00 97.8 [degF] Com [facility] bmi 2022-12-27 11:20:00 30.42 kg/m2 Comm on [facility] oximetry 2022-12-27 11:20:00 97 % Commo n [facility] respiratory rate 2022-12-27 11:20:00 18 /min [facility] blood pressure systolic 2022-12-27 11:20:00 139 mm[Hg] [facility] blood pressure diastolic 2022-12-27 11:20:00 63 mm[Hg] Common [facility] height 2022-06-21 13:00:00 66.00 [in_i] Com [facility] weight 2022-06-21 13:00:00 191 [lb_av] Comm on [facility] temperature 2022-06-21 13:00:00 97.6 [degF] Com [facility] bmi 2022-06-21 13:00:00 30.82 kg/m2 Comm on [facility] oximetry 2022-06-21 13:00:00 97 % Commo n [facility] respiratory rate 2022-06-21 13:00:00 18 /min [facility] blood pressure systolic 2022-06-21 13:00:00 136 mm[Hg] Common [facility] blood pressure diastolic 2022-06-21 13:00:00 74 mm[Hg] [facility] height 2022-05-18 13:00:00 66.00 [in_i] Com [facility] weight 2022-05-18 13:00:00 195.4 [lb_av] [facility] 2022-05-18 13:00:00 98.6 [degF] Com [facility] bmi 2022-05-18 13:00:00 31.53 kg/m2 Comm on [facility] oximetry 2022-05-18 13:00:00 97 % Commo n [facility] respiratory rate 2022-05-18 13:00:00 16 /min [facility] blood pressure systolic 2022-05-18 13:00:00 182 mm[Hg] [facility] blood pressure diastolic 2022-05-18 13:00:00 76 mm[Hg] Common [facility] height 2022-05-18 14:00:00 66.00 [in_i] Com [facility] weight 2022-05-18 14:00:00 195.4 [lb_av] Co mmon [facility] temperature 2022-05-18 14:00:00 98.6 [degF] Com [facility] bmi 2022-05-18 14:00:00 31.53 kg/m2 Comm on [facility] oximetry 2022-05-18 14:00:00 97 % Commo n [facility] respiratory rate 2022-05-18 14:00:00 16 /min Common [facility] blood pressure systolic 2022-05-18 14:00:00 182 mm[Hg] Common [facility] blood pressure diastolic 2022-05-18 14:00:00 76 mm[Hg] Common [facility] height 2022-04-16 11:00:00 66.00 [in_i] Com [facility] weight 2022-04-16 11:00:00 201 [lb_av] Comm on [facility] temperature 2022-04-16 11:00:00 97.9 [degF] Com [facility] bmi 2022-04-16 11:00:00 32.44 kg/m2 Comm on [facility] oximetry 2022-04-16 11:00:00 97 % Commo n [facility] respiratory rate 2022-04-16 11:00:00 18 /min Common [facility] blood pressure systolic 2022-04-16 11:00:00 178 mm[Hg] Common [facility] blood pressure diastolic 2022-04-16 11:00:00 82 mm[Hg] Common [facility] height 2022-03-30 10:20:00 66.00 [in_i] Com [facility] weight 2022-03-30 10:20:00 201 [lb_av] Comm on [facility] temperature 2022-03-30 10:20:00 98.3 [degF] Com [facility] bmi 2022-03-30 10:20:00 32.44 kg/m2 Comm on [facility] oximetry 2022-03-30 10:20:00 97 % Commo n [facility] respiratory rate 2022-03-30 10:20:00 20 /min Common [facility] blood pressure systolic 2022-03-30 10:20:00 150 mm[Hg] Common [facility] blood pressure diastolic 2022-03-30 10:20:00 82 mm[Hg] Common [facility] height 2022-03-13 15:30:00 66.00 [in_i] Com [facility] weight 2022-03-13 15:30:00 201 [lb_av] Comm on [facility] bmi 2022-03-13 15:30:00 32.44 kg/m2 Comm on [facility] blood pressure systolic 2022-03-13 15:30:00 136 mm[Hg] Common [facility] blood pressure diastolic 2022-03-13 15:30:00 86 mm[Hg] Common [facility] height 2022-02-27 10:00:00 66.00 [in_i] Com [facility] weight 2022-02-27 10:00:00 201 [lb_av] Comm on [facility] bmi 2022-02-27 10:00:00 32.44 kg/m2 Comm on [facility] blood pressure systolic 2022-02-27 10:00:00 136 mm[Hg] Common [facility] blood pressure diastolic 2022-02-27 10:00:00 84 mm[Hg] Common [facility] height 2021-12-19 10:00:00 66.00 [in_i] Com [facility] weight 2021-12-19 10:00:00 201.8 [lb_av] Co mmon [facility] temperature 2021-12-19 10:00:00 98.0 [degF] Com [facility] bmi 2021-12-19 10:00:00 32.57 kg/m2 Comm on [facility] oximetry 2021-12-19 10:00:00 96 % Commo n [facility] respiratory rate 2021-12-19 10:00:00 18 /min Common [facility] blood pressure systolic 2021-12-19 10:00:00 136 mm[Hg] Common [facility] blood pressure diastolic 2021-12-19 10:00:00 69 mm[Hg] Common [facility] height 2021-07-20 11:00:00 66.00 [in_i] Com [facility] weight 2021-07-20 11:00:00 200.2 [lb_av] Co mmon [facility] temperature 2021-07-20 11:00:00 97.3 [degF] Com [facility] bmi 2021-07-20 11:00:00 32.31 kg/m2 Comm on [facility] oximetry 2021-07-20 11:00:00 98 % Commo n [facility] respiratory rate 2021-07-20 11:00:00 16 /min Common [facility] blood pressure systolic 2021-07-20 11:00:00 157 mm[Hg] Common Sp[facility] blood pressure diastolic 2021-07-20 11:00:00 74 mm[Hg] Common [facility] height 2021-07-13 11:40:00 66.00 [in_i] Com [facility] weight 2021-07-13 11:40:00 201 [lb_av] Comm on [facility] temperature 2021-07-13 11:40:00 97.2 [degF] Com [facility] bmi 2021-07-13 11:40:00 32.44 kg/m2 Comm on [facility] oximetry 2021-07-13 11:40:00 99 % Commo n [facility] respiratory rate 2021-07-13 11:40:00 22 /min [facility] blood pressure systolic 2021-07-13 11:40:00 164 mm[Hg] [facility] blood pressure diastolic 2021-07-13 11:40:00 72 mm[Hg] [facility] height 2021-07-04 10:00:00 66.00 [in_i] Com [facility] weight 2021-07-04 10:00:00 202 [lb_av] Comm on [facility] temperature 2021-07-04 10:00:00 97.3 [degF] Com [facility] bmi 2021-07-04 10:00:00 32.6 kg/m2 Commo n [facility] oximetry 2021-07-04 10:00:00 98 % Commo n [facility] respiratory rate 2021-07-04 10:00:00 18 /min [facility] blood pressure systolic 2021-07-04 10:00:00 128 mm[Hg] [facility] blood pressure diastolic 2021-07-04 10:00:00 82 mm[Hg] [facility] Encounters Start Date/Time End Date/Time Encounter Type Admission Type Attending [facility] Care Facility Care Department Encounter ID Source 2024-03-05 09:39:00 Outpatient HopperHansh STLC STLMLC [id number] [facility] 2023-04-01 15:10:00 Outpatient HopperHansh [facility] STL[facility] [id number] [facility] 2023-03-11 10:45:00 Outpatient HopperHansh [facility] STL[facility]C [id number] [facility] 2022-12-20 10:58:00 Outpatient Monty Robin STLMLC STLMLC [id number] [facility] 2022-12-11 15:00:00 Outpatient Becca Mcgill STLMLC STLMLC [id number] [facility] 2022-06-19 14:09:00 Outpatient Collazo, Na STLMLC STLMLC [id number] [facility] 2022-05-23 08:39:00 Outpatient Collazo, Na STLMLC STLMLC [id number] [facility] 2022-05-16 10:10:00 Outpatient Collazo, Na STLMLC STLMLC [id number] [facility] 2022-04-24 17:46:00 Outpatient Collazo, Na STLMLC STLMLC [id number] [facility] 2022-04-09 07:38:00 Outpatient Collazo, Na STLMLC STL[facility]C [id number] [facility] 2022-03-28 09:38:00 Outpatient Collazo, Na STLMLC STLMLC [id number] [facility] 2022-03-26 11:16:00 Outpatient Collazo, Na STLMLC STLMLC [id number] [facility] 2022-03-05 08:48:00 Outpatient Collazo, Na STLMLC STLMLC [id number] [facility] 2022-02-27 09:40:01 Outpatient Collazo, Na STLMLC STLMLC [id number] [facility] 2021-12-19 09:58:01 Outpatient Collazo, Na STLMLC STL[facility]C [id number] [facility] 2021-12-18 11:06:01 Outpatient Collazo, Na STLMLC STLMLC [id number] [facility] 2021-12-15 13:37:00 Outpatient Collazo, Na STLMLC STLMLC [id number] [facility] 2021-10-11 12:48:42 Outpatient Collazo, Na STLMLC STL[facility]C [id number] [facility] 2021-10-11 12:47:40 Outpatient Collazo, Na STLMLC STLMLC [id number] [facility] 2021-10-11 11:48:55 Outpatient Collazo, Na STLMLC STLMLC [id number] [facility] 2021-10-11 11:17:22 Outpatient Collazo, Na STLMLC STLMLC [id number] [facility] 2021-10-11 11:13:20 Outpatient Collazo, Na STLMLC STLMLC [id number] [facility] 2021-10-11 11:07:19 Outpatient Collazo, Na STLMLC STLMLC [id number] [facility] 2021-10-11 11:06:28 Outpatient Collazo, Na STLMLC STLMLC [id number] [facility] 2024-03-06 00:00:00 2024-03-06 00:00:00 OFFICE VISIT ESTAB PT LEVEL 4 STLMLC STLMLC [id number] [facility] 2024-03-06 00:00:00 2024-03-06 00:00:00 SUB ANNUAL [facility] ST[facility] [id number] [facility] 2024-01-06 00:00:00 2024-01-06 00:00:00 (TEL) STLMLC STLMLC [id number] [facility] 2023-09-03 00:00:00 2023-09-03 00:00:00 OFFICE VISIT ESTAB PT LEVEL 4 [facility]LMLC STLMLC [id number] [facility] 2023-07-16 00:00:00 2023-07-16 00:00:00 Outpatient GC_GCBZW_Ka diyala_S PRIV PRIV [id number] [facility] 2023-07-15 00:00:00 2023-07-15 00:00:00 Outpatient GC_GCBZW_Ka diyala_S PRIV PRIV [id number] [facility] 2023-03-27 00:00:00 2023-03-27 00:00:00 (TEL) STLMLC STLMLC [id number] [facility] 2023-03-11 00:00:00 2023-03-11 00:00:00 OFFICE VISIT ESTAB PT LEVEL 4 STLMLC STLMLC [id number] [facility] 2023-03-11 00:00:00 2023-03-11 00:00:00 SUB ANNUAL [facility] VISIT STLMLC STLMLC [id number] [facility] 2023-02-20 00:00:00 2023-02-20 00:00:00 (TEL) STLMLC STLMLC [id number] [facility] 2022-12-27 00:00:00 2022-12-27 00:00:00 OFFICE VISIT ESTAB PT LEVEL 4 STLMLC STLMLC [id number] [facility] 2022-12-14 00:00:00 2022-12-14 00:00:00 (TEL) STLMLC STLMLC [id number] [facility] 2022-09-06 00:00:00 2022-09-06 00:00:00 (TEL) STLMLC STLMLC [id number] [facility] 2022-06-21 00:00:00 2022-06-21 00:00:00 OFFICE VISIT EST PT LEVEL 3 STLMLC STLMLC [id number] [facility] 2022-06-06 00:00:00 2022-06-06 00:00:00 (TEL) STLMLC STLMLC [id number] [facility] 2022-05-18 00:00:00 2022-05-18 00:00:00 SUB ANNUAL MCR WELLNESS VISIT STLMLC STLMLC [id number] [facility] 2022-05-18 00:00:00 2022-05-18 00:00:00 OFFICE VISIT EST PT LEVEL 3 STLMLC STLMLC [id number] [facility] 2022-05-03 00:00:00 2022-05-03 00:00:00 (TEL) STLMLC STLMLC [id number] [facility] 2022-04-16 00:00:00 2022-04-16 00:00:00 OFFICE VISIT ESTAB PT LEVEL 4 STLMLC STLMLC [id number] [facility] 2022-03-30 00:00:00 2022-03-30 00:00:00 OFFICE VISIT EST PT LEVEL 3 STLMLC STLMLC [id number] [facility] 2022-03-26 00:00:00 2022-03-26 00:00:00 (TEL) STLMLC STLMLC [id number] [facility] 2022-03-13 00:00:00 2022-03-13 00:00:00 (IN/ASP) INJ ASP STLMLC STLMLC [id number] [facility] 2022-02-27 00:00:00 2022-02-27 00:00:00 OFFICE VISIT NEW PT LEVEL 4 STLMLC STLMLC [id number] [facility] 2022-02-23 00:00:00 2022-02-23 00:00:00 (TEL) STLMLC STLMLC [id number] [facility] 2021-12-19 00:00:00 2021-12-19 00:00:00 OFFICE VISIT EST PT LEVEL 3 STLMLC STLMLC [id number] [facility] 2021-09-12 00:00:00 2021-09-12 00:00:00 (TEL) STLMLC STLMLC [id number] [facility] 2021-08-14 00:00:00 2021-08-14 00:00:00 (TEL) STLMLC STLMLC [id number] [facility] 2021-07-20 00:00:00 2021-07-20 00:00:00 OFFICE VISIT ESTAB PT LEVEL 1 STLMLC STLMLC [id number] [facility] 2021-07-13 00:00:00 2021-07-13 00:00:00 OFFICE VISIT ESTAB PT LEVEL 2 STLMLC STLMLC [id number] [facility] 2021-07-04 00:00:00 2021-07-04 00:00:00 OFFICE VISIT ESTAB PT LEVEL 4 STLMLC STLMLC [id number] [facility] 2020-12-20 00:00:00 2020-12-20 00:00:00 Outpatient STLMLC STLMLC [id number] [facility] 2020-12-19 00:00:00 2020-12-19 00:00:00 Outpatient STLMLC STLMLC [id number] [facility] 2020-09-26 00:00:00 2020-09-26 00:00:00 Outpatient STLMLC STLMLC [id number] [facility] 2020-06-13 00:00:00 2020-06-13 00:00:00 Outpatient STLMLC STLMLC [id number] [facility] 2020-03-10 15:20:00 2020-03-10 15:20:00 [facility] [id number] [facility] 2019-11-26 13:40:00 2019-11-26 13:40:00 [facility] [id number] [facility] 2019-10-30 11:11:00 2019-10-30 11:11:00 [facility] [id number] [facility] 2019-10-28 11:00:00 2019-10-28 11:00:00 [facility] [id number] [facility] 2019-09-17 13:52:00 2019-09-17 13:52:00 [facility] [id number] [facility] 2019-06-24 11:20:00 2019-06-24 11:20:00 [facility] [id number] [facility] 2019-02-19 13:00:00 2019-02-19 13:00:00 [facility] [id number] [facility] 2018-11-18 14:15:00 2018-11-18 14:15:00 [facility] [id number] [facility] 2018-10-10 11:33:00 2018-10-10 11:33:00 [facility] [id number] [facility] 2018-08-20 14:00:00 2018-08-20 14:00:00 [facility] [id number] [facility] 2018-05-21 14:15:00 2018-05-21 14:15:00 Out[facility] [id number] [facility] 2018-02-18 15:00:00 2018-02-18 15:00:00 [facility] [id number] [facility]
[2024-04-21 22:26] LABS: Hematocrit 34.4 % (36.0-45.0); Hemoglobin 12.2 g/dL (12.0-15.0); MCH 31.4 pg (27.0-35.0); MCHC 35.5 g/dL (32.0-36.0); MCV 88.5 fL (80-100); MPV 7.4 fL (7.6-11.3); Platelets 295 thou/uL (152-406); RBC Red Blood Cell Count 3.89 M/uL (3.86-4.86); Red Cell Distribution Width 14.3 % (12.1-15.2)
[2024-04-21 22:32] LABS: PT Prothrombin Time 15.8 SECONDS (9.4-12.5); PTT, Activated Partial Thromb 29.1 SECONDS (24.3-36.9); Protime INR 1.43
[2024-04-21 22:53] LABS: Albumin 2.6 g/dL (3.4-5.0); Albumin/Globulin Ratio 0.7 (1.1-1.8); Anion Gap 14.9 mEq/L (5.0-15.0); Bilirubin Direct 17.3 mg/dL (0-0.2); Bilirubin Total 20.9 mg/dL (0.2-1.0); Potassium 2.9 mEq/L (3.5-5.1); Protein, Total 6.6 g/dL (6.4-8.2)
[2024-04-21 22:55] LABS: Troponin High Sensitivity 80.1 pg/mL (<58.9)
[2024-04-21 23:32] LABS: Band Neutrophils 5 % (0-1); Differential Total Cells Count 100; Eosinophils 1 % (0-3); Lymphocytes 7 % (15-42); Monocytes 4 % (0-10); Reactive Lymphocytes 3 %; Segmented Neutrophils 80 % (40-80)
[2024-04-21 23:33] LABS: Blood Morphology Comment NOTED (NOT SEEN); Platelet Estimate ADEQ; Target Cells 1+
--- NOTE | 2024-04-22 01:05 | ER ---
Nurse's Notes [facility] Name: Kerrie Harrington Age: 84 yrs Sex: Female : 1940 Arrival Date: 04/21/2024 Time: 20:31 Bed 17 Private MD: Diagnosis: Hyperbilirubinemia, new onset pancreatic mass with liver metastases Presentation: 04/21 21:04 Chief complaint: Patient states: PAIN WITH URINATION X 2 WEEKS, ITCHING ALL OVER AND cm10 YELLOWING OF SKIN ONSET TODAY. Coronavirus screen: Client denies travel out of the [place] in the last 14 days. At this time, the client does not indicate any symptoms associated with coronavirus-19. Ebola Screen: Patient denies travel to an Ebola-affected area in the 21 days before illness onset. No symptoms or risks identified at this time. Initial Sepsis Screen: Does the patient meet any 2 criteria? No. Patient's initial sepsis screen is negative. Does the patient have a suspected source of infection? No. Patient's initial sepsis screen is negative. Risk Assessment: Do you want to hurt yourself or someone else? Patient reports no desire to harm self or others. Onset of symptoms was April 21, 2024. 21:04 Method Of Arrival: Wheelchair cm10 21:04 Acuity: KEVAN 3 cm10 Triage Assessment: 21:06 General: Appears in no apparent distress. comfortable, Behavior is calm, cooperative. cm10 Pain: Denies pain. Derm: Skin is jaundiced. 21:07 Respiratory: No deficits noted. Airway is patent Respiratory effort is even, unlabored, cm10 Respiratory pattern is regular, symmetrical. Historical: - Allergies: 21:06 Aspirin; cm10 21:06 PENICILLINS; cm10 - PMHx: 21:06 GERD; Hypertension; pre cancerous skin spots to head; cm10 - PSHx: 21:06 cataract repair; cm10 - Immunization history:: Adult Immunizations up to date. - Infectious Disease History:: Denies. - Social history:: Smoking status: Patient denies any tobacco usage or history of. Screenin:40 Abuse screen: Denies threats or abuse. Denies injuries from another. jw7 22:40 [facility] ED Fall Risk Assessment (Adult) History of falling in the last 3 months, jw7 including since admission No falls in past 3 months (0 pts) Confusion or Disorientation No (0 pts) Intoxicated or Sedated No (0 pts) Impaired Gait Yes (1 pt) Mobility Assist Device Used No (0 pt) Altered Elimination Yes (1 pt) Score/Fall Risk Level 3 or more points = High Risk Oriented to surroundings, Maintained a safe environment, Educated pt \T\ family on fall prevention, incl call for assistance when getting out of bed, Assessed \T\ reinforced patient's understanding of fall precautions, Provided non-skid footwear, Hourly rounding (assess needs \T\ fall precautionary measures) done. Nutritional screening: No deficits noted. Tuberculosis screening: No symptoms or risk factors identified. Assessment: 22:40 General: Appears in no apparent distress. comfortable, Behavior is calm, cooperative, jw7 appropriate for age. 22:40 Pain: Denies pain. Neuro: Level of Consciousness is awake, alert, obeys commands, jw7 Oriented to person, place, time, situation, Appropriate for age. Cardiovascular: Capillary refill < 3 seconds Patient's skin is warm and dry. Respiratory: Airway is patent Respiratory effort is even, unlabored, Respiratory pattern is regular, symmetrical. GI: Abdomen is round non-distended, Bowel sounds present X 4 quads. Abd is soft. : Reports burning with urination, urinary frequency. EENT: No deficits noted. No signs and/or symptoms were reported regarding the EENT system. Derm: Skin is healthy with good turgor, Skin is dry, Skin is jaundiced, Skin temperature is warm. Musculoskeletal: Circulation, motion, and sensation intact. Range of motion: intact in all extremities. 23:30 Reassessment: Patient appears in no apparent distress at this time. No changes from jw7 previously documented assessment. Patient and/or family updated on plan of care and expected duration. Pain level reassessed. Patient is alert, oriented x 3, equal unlabored respirations, skin warm/dry/pink. 04/22 00:37 Reassessment: Patient appears in no apparent distress at this time. No changes from jw7 previously documented assessment. Patient and/or family updated on plan of care and expected duration. Pain level reassessed. Patient is alert, oriented x 3, equal unlabored respirations, skin warm/dry/pink. 01:36 General: [facility] denied transportation due to capacity. . vc1 01:43 Reassessment: Patient appears in no apparent distress at this time. No changes from [facility] previously documented assessment. Patient and/or family updated on plan of care and expected duration. Pain level reassessed. Patient is alert, oriented x 3, equal unlabored respirations, skin warm/dry/pink. 02:30 Reassessment: Patient appears in no apparent distress at this time. No changes from 7 previously documented assessment. Patient and/or family updated on plan of care and expected duration. Pain level reassessed. Patient is alert, oriented x 3, equal unlabored respirations, skin warm/dry/pink. 03:46 Reassessment: Patient appears in no apparent distress at this time. No changes from jw7 previously documented assessment. Patient and/or family updated on plan of care and expected duration. Pain level reassessed. Patient is alert, oriented x 3, equal unlabored respirations, skin warm/dry/pink. Vital Signs: 04/21 21:04 BP 118 / 56; Pulse 100; Resp 16; Temp 98.7; Pulse Ox 98% on R/A; Weight 80.29 kg; cm10 Height 5 ft. 6 in. ; Pain 0/10; 04/22 00:00 BP 114 / 57; Pulse 97; Resp 18 S; Pulse Ox 97% on R/A; jw7 01:00 BP 151 / 62; Pulse 100; Resp 17 S; Pulse Ox 97% on R/A; jw7 02:00 BP 125 / 59; Pulse 97; Resp 16 S; Pulse Ox 97% on R/A; jw7 03:00 BP 141 / 54; Pulse 98; Resp 16 S; Pulse Ox 97% on R/A; jw7 04/21 21:04 Body Mass Index 28.57 (80.29 kg, 167.64 cm) cm10 04/21 21:04 Pain Scale: Adult cm10 ED Course: 04/21 20:34 Patient arrived in ED. im 20:38 Arnold Hopper MD is Attending Physician. sp3 21:06 Triage completed. cm10 21:07 Arm band placed on Patient placed in waiting room. cm10 21:22 Ptt, Activated Sent. cm10 21:22 PT-INR Sent. cm10 21:22 Bilirubin, Direct Sent. cm10 21:22 Lactate w/ 2H reflex if indic. Sent. cm10 21:22 CBC with Diff Sent. cm10 21:23 CMP Sent. cm10 21:23 Lipase Sent. cm10 21:23 Initial lab(s) drawn, by me, sent to lab. Inserted saline lock: 20 gauge in left cm10 antecubital area, using aseptic technique. Blood collected. Flushed with 10 mL NS. 22:15 Lab(s) recollected, by me, sent to lab. cm10 22:40 Patient has correct armband on for positive identification. Bed in low position. Call jw7 light in reach. Side rails up X2. Provided Education on: Use of Call Light. 22:46 Mali Gonzales, RN is Primary Nurse. jw7 22:55 Notified ED physician of a critical lab result(s). Troponin 80.1. jw7 23:41 CT Abd/Pelvis - IV Contrast Only In Process Unspecified. EDMS 23:58 EKG done, by ED staff. vk 04/22 02:01 Initiated transfer with [facility], denied all facilities with GI at saturation. [facility] 02:15 Inserted saline lock: 24 gauge in left hand, using aseptic technique. Blood collected. jw7 Flushed with 10 mL NS. 02:15 First set of blood cultures drawn by me. jw7 02:30 Second set of blood cultures drawn by me. jw7 03:06 initiated transfer with [facility] \T\ [facility] \T\ 0213. pt was accepted by Sandro Simeon \T\0240. [facility] AOC given by Janae Mccormack 0240. nurse to nurse [phone]. ems called \T\ 0304 eta 20 mins to transfer pt. 03:47 No provider procedures requiring assistance completed. Patient transferred, IV remains jw7 in place. Administered Medications: 02:30 Drug: Cefepime IVPB 2 grams IVPB at 200 ml/hr once over 30 mins; (mix in NS 100 mL) jw7 Route: IVPB; Rate: 200 ml/hr; Infused Over: 30 mins; Site: left hand; 03:14 Follow up: Response: No adverse reaction; IV Status: Completed infusion; IV Intake: jw7 100ml 02:30 Drug: NS 0.9% IV 1000 ml IV at 100 ml/hr once Route: IV; Rate: 100 ml/hr; Site: left jw hand; 03:48 Follow up: Response: No adverse reaction; IV Status: Infusion continued upon transfer; jw7 IV Intake: 100ml Medication: 01:37 VIS not applicable for this client. vc1 Intake: 03:14 IV: 100ml; Total: 100ml. jw7 03:48 IV: 100ml; Total: 200ml. jw7 Outcome: 01:05 ER care complete, transfer ordered by . sp3 03:47 Transferred by ground EMS Note: [facility] jw7 03:47 Condition: stable 03:47 Instructed on the need for transfer, Demonstrated understanding of instructions, 03:48 Patient left the ED. jw7 Signatures: Dispatcher [employer] EDMS Arnold Hopper MD MD sp3 Karen Bradford RN RN vc1 Mali Gonzales RN RN jw7 Chrissie De Jesus Clarissa RN RN cm10 Suze Morin [facility] [place]
--- NOTE | 2024-04-22 01:06 | EDPHYS ---
Physician Documentation [facility] Name: Kerrie Harrington Age: 84 yrs Sex: Female : 1940 Arrival Date: 04/21/2024 Time: 20:31 Bed 17 Private MD: ED Physician Arnold Hopper HPI: 04/21 21:15 This 84 yrs old Female presents to ER via Wheelchair with complaints of Pain With sp3 Urination, Itching, Weakness, yellow skin, Decreased Appetite. 21:15 84-year-old female with history of hypertension, GERD, "precancerous spots to the sp3 scalp" presents to the ED with acute onset jaundice over the last 36 hours, dysuria, and general fatigue. No prior liver pathology or other GI pathology reported. Patient still has gallbladder. Review of systems she denies headache, changes in vision, neck pain, chest pain, shortness of breath, back pain, intra-abdominal pain, vomiting, diarrhea, rash elsewhere, fever, or any other signs or symptoms on ROS at this time.. Historical: - Allergies: 21:06 Aspirin; cm10 21:06 PENICILLINS; cm10 - PMHx: 21:06 GERD; Hypertension; pre cancerous skin spots to head; cm10 - PSHx: 21:06 cataract repair; cm10 - Immunization history:: Adult Immunizations up to date. - Infectious Disease History:: Denies. - Social history:: Smoking status: Patient denies any tobacco usage or history of. ROS: 21:16 Eyes: Negative for injury, pain, redness, and discharge, ENT: Negative for injury, sp3 pain, and discharge, Neck: Negative for injury, pain, and swelling, Cardiovascular: Negative for chest pain, palpitations, and edema, Respiratory: Negative for shortness of breath, cough, wheezing, and pleuritic chest pain, Abdomen/GI: Negative for abdominal pain, nausea, vomiting, diarrhea, and constipation, Back: Negative for injury and pain, MS/Extremity: Negative for injury and deformity, Neuro: Negative for headache, weakness, numbness, tingling, and seizure, Psych: Negative for depression, anxiety, suicide ideation, homicidal ideation, and hallucinations, Allergy/Immunology: Negative for hives, rash, and allergies, Endocrine: Negative for neck swelling, polydipsia, polyuria, polyphagia, and marked weight changes, Hematologic/Lymphatic: Negative for swollen nodes, abnormal bleeding, and unusual bruising, 21:16 All other systems are negative, Exam: 21:16 Constitutional: This is a well developed, well nourished patient who is awake, alert, sp3 and in no acute distress. Head/Face: Normocephalic, atraumatic. ENT: Nares patent. No nasal discharge, no septal abnormalities noted. External auditory canals are clear. Oropharynx with no redness, swelling, or masses, exudates, or evidence of obstruction, uvula midline. Mucous membranes moist. Neck: Trachea midline, no thyromegaly or masses palpated, and no cervical lymphadenopathy. Supple, full range of motion without nuchal rigidity, or vertebral point tenderness. No Meningismus. Chest/axilla: Normal chest wall appearance and motion. Nontender with no deformity. No lesions are appreciated. Cardiovascular: Regular rate and rhythm with a normal S1 and S2. No gallops, murmurs, or rubs. Normal PMI, no JVD. No pulse deficits. Respiratory: Lungs have equal breath sounds bilaterally, clear to auscultation and percussion. No rales, rhonchi or wheezes noted. No increased work of breathing, no retractions or nasal flaring. Abdomen/GI: Soft, non-tender, with normal bowel sounds. No distension or tympany. No guarding or rebound. No evidence of tenderness throughout. Back: No spinal tenderness. No costovertebral tenderness. Full range of motion. MS/ Extremity: Pulses equal, no cyanosis. Neurovascular intact. Full, normal range of motion. Neuro: Awake and alert, GCS 15, oriented to person, place, time, and situation. Cranial nerves II-XII grossly intact. Motor strength 5/5 in all extremities. Sensory grossly intact. Cerebellar exam normal. Normal gait. Psych: Awake, alert, with orientation to person, place and time. Behavior, mood, and affect are within normal limits. 21:16 Eyes: Sclera: icterus, 21:16 Skin: Appearance: Color: jaundiced, 04/22 00:02 ECG was reviewed by the Attending Physician. EKG demonstrates normal sinus rhythm at 99 sp3 bpm with normal intervals except QTc borderline at 479, normal axis, normal QRS, normal axis ST segments without evidence of acute ischemia. Vital Signs: 04/21 21:04 BP 118 / 56; Pulse 100; Resp 16; Temp 98.7; Pulse Ox 98% on R/A; Weight 80.29 kg; cm10 Height 5 ft. 6 in. ; Pain 0/10; 04/22 00:00 BP 114 / 57; Pulse 97; Resp 18 S; Pulse Ox 97% on R/A; jw7 01:00 BP 151 / 62; Pulse 100; Resp 17 S; Pulse Ox 97% on R/A; jw7 02:00 BP 125 / 59; Pulse 97; Resp 16 S; Pulse Ox 97% on R/A; jw7 03:00 BP 141 / 54; Pulse 98; Resp 16 S; Pulse Ox 97% on R/A; jw7 04/21 21:04 Body Mass Index 28.57 (80.29 kg, 167.64 cm) cm10 04/21 21:04 Pain Scale: Adult cm10 MDM: 04/21 21:07 Patient medically screened. 3 21:17 Data reviewed: vital signs, nurses notes, old medical records, lab test result(s), EKG, 3 radiologic studies. ED course: 84-year-old female with dysuria and jaundice over the last 24 to 48 hours. Differential diagnosis includes liver pathology, gallbladder pathology, other GI pathology, unknown malignancy, pancreatic mass, sepsis, shock, among others. Will obtain CT scan of the abdomen pelvis, EKG, laboratory values, UA and general supportive care. Disposition pending workup with probable admission pending workup.. 04/22 00:02 ED course: Bilirubin at 20.9 with other significant lab findings noted. Patient now sp3 does state that she had prior breast cancer which has been in remission. Her current CT scan of the abdomen pelvis is pending. Disposition probable admission versus transfer given high probability of cancer recurrence.. 01:07 ED course: CT demonstrates pancreatic head mass with liver metastases consistent with sp3 recurrent or new onset cancer. Cefepime started for leukocytosis with bandemia. Patient will likely need biliary stent with GI consultation. Will transfer to [facility] for further management.. 04/21 21:09 Order name: CBC with Diff; Complete Time: 01:05 sp3 04/21 21:09 Order name: CMP; Complete Time: 22:56 sp3 04/21 21:09 Order name: Lipase; Complete Time: 22:56 sp3 04/21 21:09 Order name: Urinalysis w/ reflexes; Complete Time: 01:54 sp3 04/21 21:09 Order name: Troponin High Sensitivity; Complete Time: 22:56 sp3 04/21 21:09 Order name: Lactate w/ 2H reflex if indic.; Complete Time: 22:55 sp3 04/21 21:09 Order name: Bilirubin, Direct; Complete Time: 22:56 3 04/21 21:09 Order name: PT-INR; Complete Time: 22:55 sp3 04/21 21:09 Order name: Ptt, Activated; Complete Time: 22:55 3 04/21 22:42 Order name: Manual Differential; Complete Time: 01:05 EDMS 04/22 01:06 Order name: Blood Culture Adult (2) 3 04/22 01:56 Order name: Urine Culture EDDE 04/21 21:09 Order name: CT Abd/Pelvis - IV Contrast Only 3 04/21 21:09 Order name: IV Saline Lock; Complete Time: 21:22 3 04/21 21:09 Order name: Labs collected and sent; Complete Time: 21:22 3 04/21 21:09 Order name: EKG - Nurse/Tech; Complete Time: 23:58 3 04/21 21:32 Order name: Misc. Order: labs need to be recollected; Complete Time: 22:14 kmf Administered Medications: 02:30 Drug: Cefepime IVPB 2 grams IVPB at 200 ml/hr once over 30 mins; (mix in NS 100 mL) jw7 Route: IVPB; Rate: 200 ml/hr; Infused Over: 30 mins; Site: left hand; 03:14 Follow up: Response: No adverse reaction; IV Status: Completed infusion; IV Intake: jw7 100ml 02:30 Drug: NS 0.9% IV 1000 ml IV at 100 ml/hr once Route: IV; Rate: 100 ml/hr; Site: left [address]; 03:48 Follow up: Response: No adverse reaction; IV Status: Infusion continued upon transfer; jw7 IV Intake: 100ml Disposition Summary: 04/22/24 01:05 Transfer Ordered Notes: Transfer Location: [facility] sp3 Reason: Higher level of care sp3 Condition: Stable sp3 Problem: new sp3 Symptoms: have worsened sp3 Accepting Physician: CEZAR(04/22/24 03:48) jwMiguel Diagnosis - Hyperbilirubinemia, new onset pancreatic mass with liver metastases sp3 Forms: - Medication Reconciliation Form sp3 - SBAR form sp3 Signatures: Dispatcher [employer] EDMS Arnold Hopper MD MD sp3 Mali Gonzales RN RN jw7 Sharon Acuña RN RN cm10 Suze Morin [facility] Corrections: (The following items were deleted from the chart) 04/21 21:09 21:09 CBC+H.LAB.BRZ ordered. EDMS EDMS 21: 21:09 COMPREHENSIVE METABOLIC PANEL+C.LAB.BRZ ordered. EDMS EDMS 21: 21:09 LIPASE+C.LAB.BRZ ordered. EDMS EDMS 21: 21:09 Urinalysis+U.LAB.BRZ ordered. EDMS EDMS 21: 21:09 Troponin High Sensitivity+C.LAB.BRZ ordered. EDMS EDMS 21: 21:09 LACTATE+C.LAB.BRZ ordered. EDMS EDMS 21:09 21:09 BILIRUBIN, DIRECT+C.LAB.BRZ ordered. EDMS EDMS 21:09 21:09 PROTIME (+INR)+COAG.LAB.BRZ ordered. EDMS EDMS 21: 21:09 PTT, ACTIVATED+COAG.LAB.BRZ ordered. EDMS EDMS 21:09 21:09 Abdomen Pelvis W Con+CT.RAD.BRZ ordered. EDMS EDMS 04/22 03:48 01:05 TBD sp3 jw7
[2024-04-22] MEDS ORDERED: NA CHLORIDE 0.9% 100 ML ONE (01:15)
[2024-04-22] MEDS ORDERED: CEFEPIME 2 GM VIAL ONE (01:15)
[2024-04-22] MEDS ORDERED: NA CHLORIDE 0.9% 1,000 ML ONE (01:25)
[2024-04-22 01:52] LABS: Specific Gravity 1.027 (1.005-1.030); Sqamous Epithelial <5 /HPF (None Seen); Urine Bacteria <20 /HPF (<20); Urine Bilirubin 3+ (Negative); Urine Blood Negative (Negative); Urine Clarity Extremely Turbid (Clear); Urine Color Dark-Yellow (Yellow); Urine Crystals Unidentified Few /HPF (None Seen); Urine Culture Reflex Order REFLEXED; Urine Glucose NEGATIVE (Negative); Urine Ketones NEGATIVE (Negative); Urine Microscopic Reflex YN ORDER UMIC; Urine Mucus Slight /HPF (None Seen); Urine Nitrite NEGATIVE (Negative); Urine Protein 1+ (Negative); Urine RBC <5 /HPF (None Seen); Urine Urobilinogen Normal (Normal); Urine WBC 20-50 /HPF (<5); Urine pH 6.5 (5.0-7.0)
[2024-04-22 12:14] VITALS: TEMP 98.7
[2024-04-22 12:16] VITALS: O2SAT 97
[2024-04-22 12:19] VITALS: BP 141/54
--- NOTE | 2024-04-22 13:50 | RAD REPORT ---
EXAM DESCRIPTION: CT Abdomen and Pelvis With Intravenous Contrast CLINICAL HISTORY: Acute jaundice, abd pain. TECHNIQUE: Axial computed tomography images of the abdomen and pelvis with intravenous contrast. S agittal and coronal reformatted images were created and reviewed. This CT exam was performed using one or more of the following dose reduction techniques: automated exposure control, adjustment of t he mA and/or kV according to patient size, and/or use of iterative reconstruction technique. COMPARISON: CT Abdomen Pelvis dated 03/24/2022 FINDINGS: Lung bases: Bibasilar subsegmental atelectasis/pleural parenchymal scar. ABDOMEN: Liver: Interval development of multiple inhomogeneous low density lesions within the liver. Gallbladder and bile ducts: Interval development of severe intrahepatic and extrahepatic biliary di latation. The common bile duct measures 2.3 cm in maximum diameter. Gallstones within a distended a nd minimally thickened gallbladder. Trace pericholecystic fluid. Pancreas: Mild pancreatic parenchymal atrophy. Diffuse pancreatic ductal dilation progressed from t he prior measuring up to 10 mm in maximum diameter. There are multiple small cystic areas within and surrounding the pancreas and which may be contiguous with the ductal system. There is cutoff of the p ancreatic duct in the region of the pancreatic head. The parenchyma is low-density and inhomogeneous in this region. Discrete measurements are difficult to ascertain. Spleen: Unremarkable. No splenomegaly. Adrenals: Unremarkable. No mass. Kidneys and ureters: Unremarkable. Normal renal cortical enhancement bilaterally. Bilateral renal calculi. No hydronephrosis. Stomach and bowel: Colonic diverticula without adjacent inflammatory change. No bowel obstruction. No appreciable mucosal thickening. PELVIS: Appendix: The appendix is not definitively visualized. No findings to suggest acute appendicitis. Bladder: The urinary bladder is obscured. Reproductive: There has been a hysterectomy. No adnexal cysts or masses are identified. ABDOMEN and PELVIS: Intraperitoneal space: Unremarkable. No free air. No significant fluid collection. Bones/joints: Multilevel spondylosis. Right hip arthroplasty hardware again demonstrated. Severe de generative changes at the left hip joint, progressed from the prior. There is remodeling of the femor al head and acetabulum. No acute fracture. No dislocation. Soft tissues: Unremarkable. Vasculature: Moderate atherosclerotic disease. No abdominal aortic aneurysm. Lymph nodes: Unremarkable. No enlarged lymph nodes. IMPRESSION: 1. Interval development of severe intrahepatic and extrahepatic biliary dilatation as well as progressive pancreatic ductal dilation. There is cutoff of the pancreatic duct in the region of the pancreatic head. The pancreatic parenchyma is low-density and inhomogeneous in this region. Di screte measurements are difficult to ascertain. Findings are concerning for a pancreatic head mass. M R/MRCP including dedicated pancreatic imaging is recommended for further characterization. 2. Interval development of multiple inhomogeneous low density lesions within the liver. Findings ar e concerning for metastatic disease. 3. Cholelithiasis. There is gallbladder wall thickening and trace pericholecystic fluid which may b e reactive or represent acute cholecystitis. 4. Other findings as above. Electronically signed by: Deepti Moya MD 04/22/2024 12:55 AM CDT Due to temporary technical issues with the PACS/Fluency reporting system, reports are being signed by the in house radiologists without review as a courtesy to insure prompt reporting. The interpreting radiologist is fully responsible for the content of the report.
--- NOTE | 2024-04-23 13:10 | EKG ---
Test Date: 2024-04-21 Test Time: 23:48:38 Promotional Marketing Agent: ROBER MEASUREMENT RESULTS: Intervals: Rate: 99 NC: 168 QRSD: 94 QT: 374 QTc: 479 Milo: P: 60 NC: 168 QRS: 44 T: 66 INTERPRETIVE STATEMENTS: Normal sinus rhythm Normal ECG Compared to ECG 04/07/2022 17:35:49 No significant changes Electronically Signed On 04-23-24 13:05:54 CDT by Phil Garcia
== END 2024-04-22 03:48 | disposition short-term general hospital (02) ==
LOC: ER 20:31
DX: C78.7 Secondary malignant neoplasm of liver and intrahepatic bile duct (principal); K86.9 Disease of pancreas, unspecified; K80.20 Calculus of gallbladder without cholecystitis without obstruction; Z85.3 Personal history of malignant neoplasm of breast
CPT/HCPCS: 87040 ×2; 87088; 85025; 81001; 87086; 36415; 85610; 83605; 85730; 82248; 84484; 83690; 80053; 74177; Q9967; J0692; J7030; 93005